=== PATIENT | male | born 1935 | race Hispanic/Latino ===

== ENCOUNTER 2017-04-28 14:46 | Observation (INO) | payer MEDICARE ==
[~2017-04-28] VITALS: Ht 165.1 cm; Wt 69.1 kg
[~2017-04-28 14:46] MED LIST: FINASTERIDE5 MG PO; IBUPROFEN PO; LEVAQUIN500 MG PO; METFORMIN HCL500 MG PO; PREDNISOLONE ACE5 ML OS; TAMSULOSIN HCL0.4 MG PO; TYLENOL WITH C1 EACH PO
[2017-04-28 15:38] LABS: BILIRUBIN,URINE NEGATIVE (NEGATIVE); KETONES,URINE NEGATIVE (NEGATIVE); LEUKOCYTE ESTERASE ,URINE NEGATIVE (NEGATIVE); NITRITE,URINE NEGATIVE (NEGATIVE); PROTEIN,URINE DIPSTICK NEGATIVE (NEGATIVE); URINE UROBILINOGEN 0.2 mg/dL (0.2 - 1)
[2017-04-28 15:39] LABS: BASOPHILS % 0.6 % (0.0-1.0); EOSINOPHILS # (AUTO) 0.3 (0.0-0.4); EOSINOPHILS % 5.2 % (0.0-6.0); HEMATOCRIT 33.1 % (38.2-49.6); HEMOGLOBIN 10.9 g/dL (14.0-18.0); LYMPHOCYTES # (AUTO) 1.7 (1.0-3.2); LYMPHOCYTES % 27.8 % (18.0-39.1); MEAN CORPUSCULAR HEMOGLOBIN 29.1 pg (28-32); MEAN CORPUSCULAR HGB CONC 32.9 g/dL (31-35); MEAN CORPUSCULAR VOLUME 88.5 fL (81-99); MONOCYTES # (AUTO) 0.5 (0.2-0.8); MONOCYTES % 7.3 % (4.4-11.3); NEUTROPHILS # (AUTO) 3.6 (2.1-6.9); NEUTROPHILS % 58.9 % (38.7-80.0); PLATELET COUNT 265 x10e3/uL (140-360); RED BLOOD COUNT 3.74 x10e6/uL (4.3-5.7)
[2017-04-28 15:45] LABS: INR 0.95; PARTIAL THROMBOPLASTIN TIME 20.4 seconds (23.8-35.5); PROTHROMBIN TIME 13.1 seconds (11.9-14.5)
[2017-04-28 15:50] LABS: CLARITY,URINE CLEAR (CLEAR); COLOR,URINE STRAW (YELLOW)
[2017-04-28 15:51] LABS: EPITHELIAL CELLS,URINE FEW /LPF; WBC,URINE (MAN) 0-5 /HPF (0-5)
[2017-04-28 15:54] LABS: ALANINE AMINOTRANSFERASE 14 IU/L (0-55); ALBUMIN 3.8 g/dL (3.5-5.0); ALBUMIN/GLOBULIN RATIO 0.9 (0.8-2.0); ALKALINE PHOSPHATASE 50 IU/L (40-150); ANION GAP 14.1 mmol/L (8-16); BLOOD UREA NITROGEN 21 mg/dL (7-26); BUN/CREATININE RATIO 20 (6-25); CALCIUM 9.4 mg/dL (8.4-10.2); CARBON DIOXIDE 24 mmol/L (22-29); CHLORIDE 104 mmol/L (98-107); CREATININE, SERUM 1.06 mg/dL (0.72-1.25); EST GLOMERULAR FILTRATION RATE > 60 ML/MIN (60-); GLUCOSE 105 mg/dL (74-118); POTASSIUM 4.1 mmol/L (3.5-5.1); SODIUM 138 mmol/L (136-145)
[2017-04-28] MEDS ORDERED: PANTOPRAZOLE 40 MG 10ML VIAL IV STA (16:34)
[2017-04-28] MEDS ORDERED: PANTOPRAZOLE INJ 40 MG in SODIUM CHLORIDE 0.9% 50ML 50 ML IV SCH (16:45)
[2017-04-28] MEDS ORDERED: PANTOPRAZOLE 40 MG 10ML VIAL ONE ×2 (16:58→23:22)
[2017-04-28] MEDS ORDERED: PANTOPRAZOLE INJ 80 MG in SODIUM CHLORIDE 0.9% 100 ML IV SCH (17:00)
[2017-04-28] MEDS ORDERED: SODIUM CHLORIDE FLUSH 10 ML SYR INJ PRN (17:00)
[2017-04-28] MEDS: PANTOPRAZOLE INJ 40 MG in SODIUM CHLORIDE 0.9% 50ML 50 ML IV SCH ×3 (17:07→22:00)
[2017-04-28 19:12] LABS: HEMATOCRIT 30.9 % (38.2-49.6); HEMOGLOBIN 10.2 g/dL (14.0-18.0)
--- NOTE | 2017-04-28 21:04 | Consultation ---
DATE OF CONSULTATION: April 28, 2017 HISTORY: This is an 81-year-old, who has recently orthopedic surgery, has been taking some ibuprofen, presented to the hospital because of dark, tarry stool for about a week or so ago. He denies any abdominal pain along with this problem. He has been taking ibuprofen every 12 hours for the pain. His workup revealed that he has some anemia, hemoglobin is 10.2. OTHER MEDICAL PROBLEMS: Borderline diabetes, history of BPH, again status post left hip surgery. MEDICATIONS AT HOME: Tamsulosin, ibuprofen, metformin, and finasteride. ALLERGIES: NONE. SOCIAL HISTORY: Denies any alcohol abuse. FAMILY HISTORY: Noncontributory. REVIEW OF SYSTEMS: At this point, he denies any chest pain. No shortness of breath. Denies any dysphagia or odynophagia. Denies any dysuria, hematuria or any kind of syncopal episode. EXAM GENERAL: Awake, alert, appears to be stable. No acute distress at this point. VITAL SIGNS: Afebrile currently with stable vital signs. HEAD, EYES, EARS, NOSE, THROAT: Normocephalic, atraumatic. Sclerae icteric. NECK: Supple. HEART: Regular. LUNGS: Clear. ABDOMEN: Soft. There is no distention at this point. It is nontender. EXTREMITIES: No clubbing. LAB VALUES: Significant for hemoglobin of 10.2. CMP is normal. PT/INR is normal. IMPRESSIONS 1. Gastrointestinal bleed with black tarry stool. Patient has been taking ibuprofen. No evidence of peptic ulcer disease at this point. 2. History of diabetes. RECOMMENDATION: Continue the proton pump inhibitor at this point. We will proceed with EGD for further evaluation tomorrow. Follow labs and clinically. Job#: [id number] CQ cc:APRIL BREWER MD
[2017-04-28 21:30] VITALS: BP 143/80
[2017-04-28] MEDS ORDERED: HYDROCODONE/APAP 5MG-325MG TAB PO PRN (22:15)
[2017-04-28] MEDS ORDERED: SODIUM CHLORIDE 0.9% 50ML 50 ML ONE (23:26)
[2017-04-29] VITALS (7 sets, daily range): BP systolic 115–144; BP diastolic 62–80
[2017-04-29 02:36] LABS: HEMATOCRIT 31.2 % (38.2-49.6); HEMOGLOBIN 10.4 g/dL (14.0-18.0)
[2017-04-29] MEDS ORDERED: SODIUM CHLORIDE 0.9% 50ML 50 ML ONE (06:13)
[2017-04-29] MEDS: PANTOPRAZOLE INJ 40 MG in SODIUM CHLORIDE 0.9% 50ML 50 ML IV SCH (06:46)
[2017-04-29 08:21] LABS: HEMATOCRIT 30.4 % (38.2-49.6); HEMOGLOBIN 9.9 g/dL (14.0-18.0)
[2017-04-29] MEDS ORDERED: PANTOPRAZOLE 40 MG 10ML VIAL ONE (08:33)
[2017-04-29 08:46] LABS: ANION GAP 9.3 mmol/L (8-16); BLOOD UREA NITROGEN 17 mg/dL (7-26); BUN/CREATININE RATIO 18 (6-25); CALCIUM 8.7 mg/dL (8.4-10.2); CARBON DIOXIDE 30 mmol/L (22-29); CHLORIDE 108 mmol/L (98-107); CREATININE, SERUM 0.96 mg/dL (0.72-1.25); EST GLOMERULAR FILTRATION RATE > 60 ML/MIN (60-); GLUCOSE 98 mg/dL (74-118); POTASSIUM 4.3 mmol/L (3.5-5.1); SODIUM 143 mmol/L (136-145)
[2017-04-29] MEDS ORDERED: PANTOPRAZOLE INJ 40 MG in SODIUM CHLORIDE 0.9% 50ML 50 ML IV SCH (09:45)
[2017-04-29] MEDS: PANTOPRAZOL 40MG/SOD CHL 0.9% 50 ML IV SCH ×3 (10:04→20:56)
[2017-04-29 15:01] LABS: BASOPHILS % 0.7 % (0.0-1.0); EOSINOPHILS # (AUTO) 0.2 (0.0-0.4); EOSINOPHILS % 4.2 % (0.0-6.0); HEMATOCRIT 30.1 % (38.2-49.6); LYMPHOCYTES # (AUTO) 1.5 (1.0-3.2); LYMPHOCYTES % 27.9 % (18.0-39.1); MEAN CORPUSCULAR HEMOGLOBIN 29.2 pg (28-32); MEAN CORPUSCULAR HGB CONC 33.2 g/dL (31-35); MEAN CORPUSCULAR VOLUME 87.8 fL (81-99); MONOCYTES # (AUTO) 0.5 (0.2-0.8); MONOCYTES % 8.6 % (4.4-11.3); NEUTROPHILS # (AUTO) 3.2 (2.1-6.9); NEUTROPHILS % 58.2 % (38.7-80.0); PLATELET COUNT 231 x10e3/uL (140-360); RED BLOOD COUNT 3.43 x10e6/uL (4.3-5.7); RED CELL DISTRIBUTION WIDTH 13.9 % (11.7-14.4)
[2017-04-29] MEDS ORDERED: PROPOFOL IV EMULSION 10 MG/ML 50 ML VIAL ONE (17:34)
[2017-04-29] MEDS: METFORMIN HCL 500 MG TAB PO SCH (17:59)
[2017-04-29] MEDS ORDERED: FENTANYL CITRATE/PF 100MCG/2 ML INJ ONE (18:21)
[2017-04-29 20:56] LABS: BASOPHILS # (AUTO) 0.1 (0.0-0.1); BASOPHILS % 0.9 % (0.0-1.0); EOSINOPHILS # (AUTO) 0.3 (0.0-0.4); EOSINOPHILS % 4.2 % (0.0-6.0); HEMATOCRIT 35.3 % (38.2-49.6); HEMOGLOBIN 11.5 g/dL (14.0-18.0); LYMPHOCYTES # (AUTO) 2.2 (1.0-3.2); LYMPHOCYTES % 28.7 % (18.0-39.1); MEAN CORPUSCULAR HEMOGLOBIN 28.9 pg (28-32); MEAN CORPUSCULAR HGB CONC 32.6 g/dL (31-35); MEAN CORPUSCULAR VOLUME 88.7 fL (81-99); MONOCYTES # (AUTO) 0.8 (0.2-0.8); MONOCYTES % 10.2 % (4.4-11.3); NEUTROPHILS # (AUTO) 4.2 (2.1-6.9); NEUTROPHILS % 55.7 % (38.7-80.0); PLATELET COUNT 276 x10e3/uL (140-360); RED BLOOD COUNT 3.98 x10e6/uL (4.3-5.7); RED CELL DISTRIBUTION WIDTH 13.9 % (11.7-14.4)
[2017-04-29] MEDS: TAMSULOSIN HCL 0.4 MG CAP PO SCH (20:56)
[2017-04-30] VITALS: BP 147/70
[2017-04-30 01:22] LABS: BASOPHILS % 0.5 % (0.0-1.0); EOSINOPHILS # (AUTO) 0.4 (0.0-0.4); EOSINOPHILS % 4.1 % (0.0-6.0); HEMOGLOBIN 11.5 g/dL (14.0-18.0); LYMPHOCYTES # (AUTO) 2.1 (1.0-3.2); LYMPHOCYTES % 24.8 % (18.0-39.1); MEAN CORPUSCULAR HGB CONC 32.9 g/dL (31-35); MEAN CORPUSCULAR VOLUME 88.4 fL (81-99); MONOCYTES # (AUTO) 0.6 (0.2-0.8); MONOCYTES % 6.5 % (4.4-11.3); NEUTROPHILS # (AUTO) 5.5 (2.1-6.9); NEUTROPHILS % 63.8 % (38.7-80.0); PLATELET COUNT 241 x10e3/uL (140-360); RED BLOOD COUNT 3.96 x10e6/uL (4.3-5.7); RED CELL DISTRIBUTION WIDTH 13.8 % (11.7-14.4)
[2017-04-30] MEDS: PANTOPRAZOL 40MG/SOD CHL 0.9% 50 ML IV SCH ×4 (01:29→16:01)
[2017-04-30 04:00] VITALS: BP 116/73
[2017-04-30 07:03] VITALS: BP 104/59
[2017-04-30 07:08] LABS: BASOPHILS # (AUTO) 0.1 (0.0-0.1); BASOPHILS % 0.9 % (0.0-1.0); EOSINOPHILS # (AUTO) 0.4 (0.0-0.4); EOSINOPHILS % 5.3 % (0.0-6.0); HEMATOCRIT 31.5 % (38.2-49.6); HEMOGLOBIN 10.3 g/dL (14.0-18.0); LYMPHOCYTES # (AUTO) 1.8 (1.0-3.2); LYMPHOCYTES % 27.5 % (18.0-39.1); MEAN CORPUSCULAR HEMOGLOBIN 28.8 pg (28-32); MEAN CORPUSCULAR HGB CONC 32.7 g/dL (31-35); MONOCYTES # (AUTO) 0.5 (0.2-0.8); NEUTROPHILS # (AUTO) 3.9 (2.1-6.9); NEUTROPHILS % 58.1 % (38.7-80.0); PLATELET COUNT 252 x10e3/uL (140-360); RED BLOOD COUNT 3.58 x10e6/uL (4.3-5.7); RED CELL DISTRIBUTION WIDTH 13.7 % (11.7-14.4)
[2017-04-30] MEDS: METFORMIN HCL 500 MG TAB PO SCH ×2 (08:00→17:48)
[2017-04-30] MEDS: FINASTERIDE 5 MG TAB PO SCH (09:05)
[2017-04-30 11:51] VITALS: BP 98/53
[2017-04-30 13:04] LABS: BASOPHILS % 0.6 % (0.0-1.0); EOSINOPHILS # (AUTO) 0.3 (0.0-0.4); EOSINOPHILS % 5.3 % (0.0-6.0); HEMATOCRIT 31.5 % (38.2-49.6); HEMOGLOBIN 10.3 g/dL (14.0-18.0); LYMPHOCYTES # (AUTO) 1.9 (1.0-3.2); LYMPHOCYTES % 29.4 % (18.0-39.1); MEAN CORPUSCULAR HGB CONC 32.7 g/dL (31-35); MEAN CORPUSCULAR VOLUME 88.7 fL (81-99); MONOCYTES # (AUTO) 0.5 (0.2-0.8); MONOCYTES % 7.9 % (4.4-11.3); NEUTROPHILS # (AUTO) 3.6 (2.1-6.9); NEUTROPHILS % 56.6 % (38.7-80.0); PLATELET COUNT 243 x10e3/uL (140-360); RED BLOOD COUNT 3.55 x10e6/uL (4.3-5.7); RED CELL DISTRIBUTION WIDTH 13.8 % (11.7-14.4)
[2017-04-30 16:12] VITALS: BP 121/61
[2017-04-30 19:12] LABS: BASOPHILS # (AUTO) 0.1 (0.0-0.1); BASOPHILS % 0.7 % (0.0-1.0); EOSINOPHILS # (AUTO) 0.4 (0.0-0.4); EOSINOPHILS % 6.3 % (0.0-6.0); HEMATOCRIT 32.6 % (38.2-49.6); HEMOGLOBIN 10.6 g/dL (14.0-18.0); LYMPHOCYTES # (AUTO) 1.9 (1.0-3.2); LYMPHOCYTES % 27.6 % (18.0-39.1); MEAN CORPUSCULAR HEMOGLOBIN 28.7 pg (28-32); MEAN CORPUSCULAR HGB CONC 32.5 g/dL (31-35); MEAN CORPUSCULAR VOLUME 88.3 fL (81-99); MONOCYTES # (AUTO) 0.7 (0.2-0.8); NEUTROPHILS # (AUTO) 3.8 (2.1-6.9); NEUTROPHILS % 55.3 % (38.7-80.0); PLATELET COUNT 244 x10e3/uL (140-360); RED BLOOD COUNT 3.69 x10e6/uL (4.3-5.7); RED CELL DISTRIBUTION WIDTH 13.7 % (11.7-14.4)
[2017-04-30 20:04] VITALS: BP 137/70
[2017-04-30] MEDS: TAMSULOSIN HCL 0.4 MG CAP PO SCH (22:03)
--- NOTE | 2017-04-30 23:06 | Progress Note ---
DATE: INTERNAL MEDICINE PROGRESS NOTE SUBJECTIVE: He has had an episode of dark stools. He was found to have gastritis on EGD. Hemoglobin and hematocrit are stable. He is on Protonix. PHYSICAL EXAM HEART: Regular rhythm. No murmur or extra sounds. LUNGS: Clear bilaterally. ABDOMEN: Soft. EXTREMITIES: No evidence of cyanosis, edema or trauma. VITAL SIGNS: Blood pressure 120/72. Temperature 96 degrees. Heart rate is a 65 per minute. Respiratory rate 16 per minute. Oxygen saturation 98%. LABS: CBC: White blood count is 6.16, hemoglobin 9.9, hematocrit 30.4, platelet count 265,000. BMP: Sodium 143, potassium 4.3, chloride 108, CO2 30, BUN 17, creatinine 0.96, glucose 98. PT 13.1, PTT 20.4, INR 0.95. AST 13, ALT 14, total bilirubin 0.5, alkaline phosphatase 50. FINAL IMPRESSION 1. Upper gastrointestinal bleed secondary to gastritis. 2. Acute anemia. PLAN OF TREATMENT: Continue monitoring hemoglobin and hematocrit which so far is stable. Continue p.o. Protonix. As long as there is no more drop in hemoglobin and hematocrit, the patient might be able to go home tomorrow. Job#: [id number] VALENTE
[2017-05-01 01:24] VITALS: BP 110/67
[2017-05-01 05:12] VITALS: BP 98/57
[2017-05-01 07:21] LABS: BASOPHILS # (AUTO) 0.1 (0.0-0.1); BASOPHILS % 0.7 % (0.0-1.0); EOSINOPHILS # (AUTO) 0.5 (0.0-0.4); EOSINOPHILS % 6.4 % (0.0-6.0); HEMATOCRIT 32.8 % (38.2-49.6); HEMOGLOBIN 10.5 g/dL (14.0-18.0); LYMPHOCYTES # (AUTO) 2.3 (1.0-3.2); LYMPHOCYTES % 32.5 % (18.0-39.1); MEAN CORPUSCULAR HEMOGLOBIN 28.5 pg (28-32); MEAN CORPUSCULAR VOLUME 88.9 fL (81-99); MONOCYTES # (AUTO) 0.7 (0.2-0.8); MONOCYTES % 9.6 % (4.4-11.3); NEUTROPHILS # (AUTO) 3.6 (2.1-6.9); NEUTROPHILS % 50.5 % (38.7-80.0); PLATELET COUNT 258 x10e3/uL (140-360); RED BLOOD COUNT 3.69 x10e6/uL (4.3-5.7); RED CELL DISTRIBUTION WIDTH 13.8 % (11.7-14.4)
[2017-05-01] MEDS ORDERED: PANTOPRAZOLE SOD 40 MG TABEC PO SCH (07:30)
[2017-05-01 08:00] VITALS: BP 112/67
[2017-05-01] MEDS: METFORMIN HCL 500 MG TAB PO SCH ×2 (08:00→17:39)
[2017-05-01] MEDS: FINASTERIDE 5 MG TAB PO SCH (09:30)
[2017-05-01 11:40] VITALS: BP 139/74
--- NOTE | 2017-05-01 15:43 | Discharge Summary ---
HISTORY OF PRESENT ILLNESS: An 81-year-old male with past medical history positive for diabetes and hypertension who came here with black stools. He had an EGD done by Dr. Rocha, house father, which showed evidence of gastritis, hiatal hernia. No evidence of any active bleed at that time. PHYSICAL EXAMINATION HEART: Regular rhythm. No murmur. No extra sounds. LUNGS: Clear bilaterally. ABDOMEN: Soft. EXTREMITIES: Show no evidence of cyanosis, edema or trauma. FINAL IMPRESSION 1. Upper GI bleed secondary to gastritis in a patient was taking ibuprofen. 2. Hypertension. 3. Diabetes mellitus type 2. PLAN: Plan of treatment is to continue Protonix 40 mg daily. Continue rest of the home medications. Diabetic diet. Patient is told to stay away from ibuprofen, non-steroidal anti-inflammatory drugs like Aleve, Motrin, aspirin, etc. and to take Tylenol for pain or fever. The patient is going to be followed in a couple of weeks. Dr. Rocha and also discharged the patient home. APRIL BREWER MD Job#: [id number]
[2017-05-01 16:40] VITALS: BP 120/68
[2017-05-01] MEDS ORDERED: PANTOPRAZOLE SO40 MG PO (16:44)
== END 2017-05-01 18:35 | disposition home or self-care (01) ==
LOC: ER 14:46 → ERHOLD 17:08 → INTOOBSV 17:08 → MED/SURG3 21:14
PROVIDERS: ADMIT Internal Medicine; ATTEND Internal Medicine
DX: K29.61 Other gastritis with bleeding (principal); D64.9 Anemia, unspecified; K44.9 Diaphragmatic hernia without obstruction or gangrene; K21.0 Gastro-esophageal reflux disease with esophagitis; E11.9 Type 2 diabetes mellitus without complications
CPT/HCPCS: 36415 ×4; 43239; 80048; 80053; 81001; 82270; 82948 ×2; 85014 ×4; 85018 ×4; 85025 ×4; 85610; 85730; 86850; 86870; 86880; 86900; 86905; 87086; 88305; 88312; 99001; 99284; G0378 ×4

== ENCOUNTER → 2018-06-05 | Outpatient (CLI) | payer MEDICARE ==
[~2018-06-05] MED LIST changes: +PANTOPRAZOLE SO40 MG PO
--- NOTE | 2018-06-05 08:54 | Diagnostic Imaging Report ---
EXAM: Renal Ultrasound and pelvic ultrasound (non OB) INDICATION: CKD stage 3 COMPARISON: None TECHNIQUE: Transverse and longitudinal images of the kidneys and bladder were obtained. FINDINGS: Right Kidney: Length: 10.4 cm Appearance: Normal echogenicity. Collecting system: No hydronephrosis Stones: None Cyst/Mass: None Left Kidney: Length: 11.7 cm Appearance: Normal echogenicity. Collecting system: No hydronephrosis Stones: None Cyst/Mass: None Bladder: Unremarkable appearance. Bilateral ureteral jets are noted. Prostate is not seen and pelvis is obscured by overlying bowel gas and body habitus. IMPRESSION: Unremarkable renal and bladder ultrasound. No evidence of hydronephrosis. Signed by: Dr. Von Woody MD on 06/05/2018 8:51 AM
== END ==
LOC: US 07:25
PROVIDERS: ATTEND Internal Medicine Nephrology
DX: N18.3 Chronic kidney disease, stage 3 (moderate) (principal); I10 Essential (primary) hypertension; E11.9 Type 2 diabetes mellitus without complications
CPT/HCPCS: 76770; 76857

== ENCOUNTER 2018-09-15 08:39 | Emergency (ER) | payer MEDICARE ==
[~2018-09-15] VITALS: Ht 165.1 cm; Wt 68.9 kg
--- OUTSIDE RECORDS SUMMARY | 2018-09-15 08:44 | XMS REPORT | Continuity of Care Document ---
Author Author [facility] Interface Address Unknown Phone Unavailable Problems Problem Status Onset Date Classification Date Reported Comments Source LUMBAR Active 01/23/2017 [facility] Discharge Diagnosis: Fall at home 01/15/2017 01/18/2017 [facility] FALL Active 01/14/2017 [facility] LBP Active 09/11/2016 [facility] FALL - HIP PAIN OR JNJURY Active 09/10/2016 [facility] CLOSED FRACTURE OF LEFT HIP Active 09/10/2016 [facility] M54.5 - LOW BACK PAIN Active 12/13/2015 [facility] DM (<span ID="[id number]">Confirmed</span>) Resolved Problem 05/05/2017 [facility] Arthritis Resolved Problem 05/05/2017 [facility] BPH (<span ID="[id number]">Confirmed</span>) Resolved Problem 05/05/2017 [facility] FRACTURE OF UNSP PART OF NECK OF LEFT FE Active [facility] Medications Medication Details Route Status Patient Instructions Ordering Provider Order Date Source Saline Flush 0.9% 10 mL, Route: IVP, Drug Form: INJ, Dosing Weight 70, kg, PRN, PRN Line Flush, Start date: 01/14/17 22:36:00 CDT, Duration: 30 day, Stop date: 02/13/17 22:35:00 CDTNotes: (Same as: BD Posiflush) No Longer Active 01/15/2017 [facility] Acetaminophen 300 MG / Codeine Phosphate 30 MG Oral Tablet [Tylenol with Codeine #3] 1 tab, PO, Q4H, PRN Pain, # 30 tab, 0 Refill(s) Active 09/14/2016 [facility] melatonin 3 mg oral tablet 3 mg=1 tab, PO, Bedtime, PRN Sleep, .., 0 Refill(s) Active 09/14/2016 [facility] Enoxaparin 30 mg=0.3 mL, SUB-Q, Daily, 0 Refill(s) Active 09/14/2016 [facility] magnesium citrate 58.2 MG/ML Oral Solution 300 ml, Route: PO, Drug Form: LIQ, Dosing Weight 65.909, kg, ONCE, Start date: 09/12/16 17:56:00 CDT, Stop date: 09/12/16 17:56:00 CDTNotes: (Same as: Citrate of Magnesia) Concentration: 1.745 gm / 30 mL No Longer Active 09/12/2016 [facility] Insulin, Aspart, Human 2 unit, 0.02 mL, Route: SUB-Q, Drug form: SOLN, Bedtime, Dosing Weight 65.909, kg, PRN Blood Glucose Results, Start date: 09/12/16 12:02:00 CDT, Duration: 30 day, Stop date: 10/12/16 12:01:00 CDTNotes: Roll in palms of hands gently; Do not shake vigorously. (Same as: NovoLOG) "single patient use only" WASTE: F/P - Black; E - [employer] Trash Bin Stable for 28 days at room temperature. Expires in days from Date No Longer Active 09/12/2016 [facility] Glucagon 1 mg, Route: IM, Drug form: PDR/INJ, PRN, Dosing Weight 65.909, kg, PRN Blood Glucose Results, Start date: 09/12/16 12:02:00 CDT, Duration: 30 day, Stop date: 10/12/16 12:01:00 CDT No Longer Active 09/12/2016 [facility] Dextrose 50% Syringe 12.5 gm, 25 mL, Route: IVP, Drug Form: INJ, Dosing Weight 65.909, kg, PRN, PRN Blood Glucose Results, Start date: 09/12/16 12:02:00 CDT, Duration: 30 day, Stop date: 10/12/16 12:01:00 CDT No Longer Active 09/12/2016 [facility] tamsulosin 0.4 mg, 1 cap, Route: PO, Drug form: CAP, Daily, Dosing Weight 65.909, kg, Priority: STAT, Start date: 09/12/16 12:02:00 CDT, Duration: 30 day, Stop date: 10/12/16 9:00:00 CDTNotes: (Same As: Flomax) "Do Not Crush" No Longer Active 09/12/2016 [facility] Finasteride 5 mg, 1 tab, Route: PO, Drug form: TAB, Daily, Dosing Weight 65.909, kg, Priority: STAT, Start date: 09/12/16 12:02:00 CDT, Stop date: 10/12/16 9:00:00 CDTNotes: (Same as: Proscar) "Do Not Crush" Women of childbearing age should not touch or handle broken tablets No Longer Active 09/12/2016 [facility] Enoxaparin 30 mg, 0.3 mL, Route: SUB-Q, Drug form: INJ, [id number], Dosing Weight 65.909, kg, Start date: 09/12/16 6:00:00 CDT, Duration: 30 day, Stop date: 10/11/16 18:00:00 CDTNotes: (Same as: Lovenox) No Longer Active 09/12/2016 [facility] Cefazolin 1 gm, Route: IVPB, [id number], Dosing Weight 65.909, kg, Start date: 09/11/16 23:00:00 CDT, Duration: 1 doses or times, Stop date: 09/11/16 23:00:00 CDTNotes: (Same As: Ancef, Kefzol) MEDICATION WASTE Product Size: 1000 mg Product Wasted: ___ mg Inactive 09/12/2016 [facility] Docusate Sodium 100 MG Oral Capsule 200 mg, 2 cap, Route: PO, Drug form: CAP, BID, Dosing Weight 65.909, kg, Start date: 09/11/16 17:00:00 CDT, Stop date: 10/11/16 9:00:00 CDTNotes: (Same as: Colace) (Do Not Crush) No Longer Active 09/11/2016 [facility] glycopyrrolate (ANES) Route: IV, Drug form: INJ, ONCE, Stop date: 09/11/16 16:40:00 CDT Inactive 09/11/2016 [facility] phenylephrine (ANES) Route: IV, Drug form: INJ, ONCE, Stop date: 09/11/16 16:33:00 CDT Inactive 09/11/2016 [facility] ePHEDrine (ANES) Route: IV, Drug form: INJ, ONCE, Stop date: 09/11/16 16:31:00 CDT Inactive 09/11/2016 [facility] ondansetron (ANES) Route: IV, Drug form: INJ, ONCE, Stop date: 09/11/16 16:31:00 CDT Inactive 09/11/2016 [facility] dexamethasone (ANES) Route: IV, Drug form: INJ, ONCE, Stop date: 09/11/16 16:31:00 CDT Inactive 09/11/2016 [facility] Melatonin 3 mg, 1 tab, Route: PO, Drug form: TAB, Bedtime, Dosing Weight 65.909, kg, PRN Sleep, Start date: 09/11/16 16:24:00 CDT, Duration: 30 day, Stop date: 10/11/16 16:23:00 CDT, ..Notes: (Same as: [place] in) No Longer Active 09/11/2016 [facility] Tramadol 50 mg, 1 tab, Route: PO, Drug form: TAB, Q4H, Dosing Weight 65.909, kg, PRN Pain Score 4-6, Start date: 09/11/16 16:24:00 CDT, Duration: 30 day, Stop date: 10/11/16 16:23:00 CDT, ..Notes: Not to exceed 400mg/day. (Same As: Maribel) No Longer Active 09/11/2016 [facility] Ondansetron 4 mg, 2 mL, Route: IVP, Drug form: INJ, Q8H, Dosing Weight 65.909, kg, PRN Nausea & Vomiting, Start date: 09/11/16 16:24:00 CDT, Duration: 30 day, Stop date: 10/11/16 16:23:00 CDT, ..Notes: (Same as: Olamide) MEDICATION WASTE Product Size: 4 mg Product Wasted: ___ mg No Longer Active 09/11/2016 [facility] Naloxone 0.04 mg, Route: IVP, Q2MIN, Dosing Weight 65.909, kg, PRN Narcotic Reversal, Start date: 09/11/16 16:23:00 CDT, Duration: 30 day, Stop date: 10/11/16 16:22:00 CDT Inactive 09/11/2016 [facility] Dulcolax Laxative 5 mg, 1 tab, Route: PO, Drug form: ECTAB, Q24H, Dosing Weight 65.909, kg, PRN Constipation, Start date: 09/11/16 16:23:00 CDT, Duration: 30 day, Stop date: 10/11/16 16:22:00 CDTNotes: (Same As: Dulcolax , Correctol) (Do Not Crush) "Do Not Crush" No Longer Active 09/11/2016 [facility] Ondansetron 4 mg, Route: IVP, Q6H, Dosing Weight 65.909, kg, PRN Nausea & Vomiting, Start date: 09/11/16 16:23:00 CDT, Duration: 30 day, Stop date: 10/11/16 16:22:00 CDT Inactive 09/11/2016 [facility] Acetaminophen 325 MG / Hydrocodone Bitartrate 10 MG Oral Tablet 1 tab, Route: PO, Drug Form: TAB, Dosing Weight 65.909, kg, Q4H, PRN Pain Score 7-10, Start date: 09/11/16 16:23:00 CDT, Duration: 30 day, Stop date: 10/11/16 16:22:00 CDTNotes: Do not exceed 4gm/day of acetaminophen. (Same as: [place] 325/10) No Longer Active 09/11/2016 [facility] Lactated Ringers 1,000 mL 1,000 mL, Rate: 100 ml/hr, Infuse over: 10 hr, Route: IV, Dosing Weight 65.909 kg, Total Volume: 1,000, Start date: 09/11/16 16:23:00 CDT, Duration: 30 day, Stop date: 10/11/16 16:22:00 CDT No Longer Active 09/11/2016 [facility] ceFAZolin (ANES) Route: IV, Drug form: INJ, ONCE, Stop date: 09/11/16 15:56:00 CDT Inactive 09/11/2016 [facility] propofol (ANES) Route: IV, Drug form: INJ, ONCE, Stop date: 09/11/16 15:51:00 CDT Inactive 09/11/2016 [facility] lidocaine (ANES) Route: IV, Drug form: INJ, ONCE, Stop date: 09/11/16 15:51:00 CDT Inactive 09/11/2016 [facility] fentaNYL (ANES) Route: IV, Drug form: INJ, ONCE, Stop date: 09/11/16 15:51:00 CDT Inactive 09/11/2016 [facility] LR 1000 mL INJ (ANES) Route: IV, Total Volume: 1,000, Start date: 09/11/16 15:10:00 CDT, Stop date: 09/11/16 16:10:00 CDT Inactive 09/11/2016 [facility] Lactated Ringers 1,000 mL 1,000 mL, Rate: 40 ml/hr, Infuse over: 25 hr, Route: IV, Dosing Weight 65.909 kg, Total Volume: 1,000, Start date: 09/11/16 14:47:00 CDT, Duration: 1 day, Stop date: 09/12/16 14:46:00 CDT Inactive 09/11/2016 [facility] Rocephin 1 gm, Route: IVPB, [id number], Dosing Weight 65.909, kg, Start date: 09/11/16 4:00:00 CDT, Duration: 30 day, Stop date: 10/10/16 4:00:00 CDTNotes: (Same As: Rocephin). Use with 100 mL NS and infuse over 30 min MEDICATION WASTE Product Size: 1000 mg Product Wasted: ___ mg No Longer Active 09/11/2016 [facility] finasteride 5 mg oral tablet 5 mg=1 tab, PO, Daily, 0 Refill(s) Active 09/11/2016 [facility] tamsulosin 0.4 mg oral capsule 0.4 mg=1 cap, PO, Daily, 0 Refill(s) Active 09/11/2016 [facility] Metformin 500 mg, PO, BID, 0 Refill(s) Active 09/11/2016 [facility] ibuprofen 800 mg oral tablet 800 mg=1 tab, PO, TID, 0 Refill(s) No Longer Active 09/11/2016 [facility] Enoxaparin 30 mg, 0.3 mL, Route: SUB-Q, Drug form: INJ, [id number], Dosing Weight 65.909, kg, Start date: 09/11/16 2:00:00 CDT, Duration: 30 day, Stop date: 10/10/16 14:00:00 CDTNotes: (Same as: Lovenox) Inactive 09/11/2016 [facility] Morphine 2 mg, 1 mL, Route: IVP, Drug form: INJ, Q4H, Dosing Weight 65.909, kg, PRN Pain Score 7-10, Start date: 09/11/16 1:29:00 CDT, Duration: 30 day, Stop date: 10/11/16 1:28:00 CDTNotes: (Same as:MORPhine Sulfate) No Longer Active 09/11/2016 [facility] Ondansetron 4 mg, 2 mL, Route: IVP, Drug form: INJ, Q6H, Dosing Weight 65.909, kg, PRN Nausea & Vomiting, Start date: 09/11/16 1:29:00 CDT, Duration: 30 day, Stop date: 10/11/16 1:28:00 CDTNotes: (Same as: Zofran) MEDICATION WASTE Product Size: 4 mg Product Wasted: ___ mg Inactive 09/11/2016 [facility] Sodium Chloride 0.0769 MEQ/ML Injectable Solution 1,000 mL, Rate: 100 ml/hr, Infuse over: 10 hr, Route: IV, Dosing Weight 65.909 kg, Total Volume: 1,000, Start date: 09/11/16 1:29:00 CDT, Duration: 30 day, Stop date: 10/11/16 1:28:00 CDT Inactive 09/11/2016 [facility] Saline Flush 0.9% 10 ml, Route: IVP, Drug Form: INJ, Dosing Weight 65.909, kg, PRN, PRN Line Flush, Start date: 09/11/16 1:29:00 CDT, Duration: 30 day, Stop date: 10/11/16 1:28:00 CDTNotes: (Same as: BD Posiflush) No Longer Active 09/11/2016 [facility] sodium chloride 0.9% INJ 250 mL 250 mL, Rate: Sr[employer] for use with blood product administration., Dosing Weight 65.909, kg, Route: IV, Total Volume: 250, Priority: Routine, Start Date: 09/10/16 23:43:00 CDT, Duration: 1 day, Stop date: 09/11/16 23:42:00 CDT, Replace Every: 24 hr No Longer Active 09/11/2016 [facility] Ancef 2 gm, 100 mL, Route: IVPB, Drug form: INJ, ONCE, Dosing Weight 65.909, kg, Priority: STAT, Start date: 09/10/16 23:43:00 CDT, Stop date: 09/10/16 23:43:00 CDTNotes: Same as: Ancef No Longer Active 09/11/2016 [facility] Saline Flush 0.9% 10 mL, Route: IVP, Drug Form: INJ, Dosing Weight 65.909, kg, PRN, PRN Line Flush, Start date: 09/10/16 23:08:00 CDT, Duration: 30 day, Stop date: 10/10/16 23:07:00 CDTNotes: (Same as: BD Posiflush) No Longer Active 09/11/2016 [facility] Ondansetron 4 mg, 2 mL, Route: IVP, Drug form: INJ, ONCE, Dosing Weight 65.909, kg, Priority: STAT, Start date: 09/10/16 22:14:00 CDT, Stop date: 09/10/16 22:14:00 CDTNotes: (Same as: Zofran) MEDICATION WASTE Product Size: 4 mg Product Wasted: ___ mg Inactive 09/11/2016 [facility] Morphine 4 mg, 1 mL, Route: IVP, Drug form: SOLN, ONCE, Dosing Weight 65.909, kg, Priority: STAT, Start date: 09/10/16 22:14:00 CDT, Stop date: 09/10/16 22:14:00 CDTNotes: (Same as:MORPhine Sulfate) Inactive 09/11/2016 [facility] Allergies, Adverse Reactions, Alerts Substance Category Reaction Severity Reaction type Status Date Reported Comments Source Immunizations Immunization Date Given Site Status Last Updated Comments Source Results Order Name Results Value Reference Range Date Interpretation Comments Source Chest 1view DX Chest 1view DX Chest 1view DX 01/14/2017 10:36 PM CDT Ordering Physician: Nichole Ross CLINICAL HISTORY: - weakness; TECHNIQUE: AP view of the chest were obtained. COMPARISON: 4 days ago FINDINGS: Lungs are clear. No pleural effusion of pneumothorax is present. Cardiomediastinal silhouette demonstrates normal heart size, but with mild aortic arch calcified plaque. Bones are normal. IMPRESSION: No acute abnormality of the chest. SL: ODALYS 01/14/2017 - - Read by: Agata Pace MD Dictated Date/time: 01/14/17 23:23 Electronically Signed by: Agata Pace MD 01/14/17 23:24 FINAL REPORT [facility] Hip bilat w pelvis and both lat hips DX Hip bilat w pelvis and both lat hips DX Hip bilat w pelvis and both lat hips DX 01/14/2017 10:34 PM CDT Ordering Physician: Nichole Ross CLINICAL INDICATION: - right hip pain; COMPARISON: 09/10/2016 and 09/11/2016 TECHNIQUE: AP view of the pelvis and internal and external rotated views of the bilateral hips were obtained. Total 5 views FINDINGS: No acute fracture, subluxation, or dislocation is present in the hips or pelvis. No unexpected radiopaque foreign body is present. Chronic left femoral neck fracture is stable with intact ORIF screws. IMPRESSION: No acute abnormality of the bilateral hips or pelvis. SL: ODALYS 01/14/2017 - - Read by: Agata Pace MD Dictated Date/time: 01/14/17 23:24 Electronically Signed by: Agata Pace MD 01/14/17 23:26 FINAL REPORT [facility] Spine cervical wo contrast CT Spine cervical wo contrast CT CT BRAIN WITHOUT CONTRAST, CT CERVICAL SPINE WITHOUT CONTRAST INDICATION: Posttraumatic head and cervical spine pain, ct dlp 901.26 mGy-cm - weakness, fell today, hx of recent hip surgery COMPARISON: None DISCUSSION: BRAIN: There are generalized involutional changes of the brain and microangiopathic changes of the white matter. There is no evidence of acute vascular insults, space occupying lesions, hemorrhage, hydrocephalus, midline shift, or extra- axial fluid collections. The calvarium is intact. CERVICAL SPINE: There are no acute fractures or subluxations. Vertebral body alignment is within normal limits. There is moderate cervical spondylosis, resulting in varying degrees of foraminal stenosis at multiple levels. Grossly, there is no appreciably significant spinal canal stenosis. The soft tissues are grossly unremarkable. Ligament, spinal cord, and/or vascular abnormalities cannot be excluded on the basis of this examination. IMPRESSION: 1. Chronic age-related changes of the brain. No acute intracranial abnormalities are visualized. 2. No acute cervical spine abnormalities are visualized. Cervical spondylosis is noted. SL:16 01/14/2017 - - Read by: Gino Banda MD Dictated Date/time: 01/14/17 23:06 Electronically Signed by: Gino Banda MD 01/14/17 23:12 FINAL REPORT [facility] Brain wo contrast CT Brain wo contrast CT CT BRAIN WITHOUT CONTRAST, CT CERVICAL SPINE WITHOUT CONTRAST INDICATION: Posttraumatic head and cervical spine pain, ct dlp 901.26 mGy-cm - weakness, fell today, hx of recent hip surgery COMPARISON: None DISCUSSION: BRAIN: There are generalized involutional changes of the brain and microangiopathic changes of the white matter. There is no evidence of acute vascular insults, space occupying lesions, hemorrhage, hydrocephalus, midline shift, or extra- axial fluid collections. The calvarium is intact. CERVICAL SPINE: There are no acute fractures or subluxations. Vertebral body alignment is within normal limits. There is moderate cervical spondylosis, resulting in varying degrees of foraminal stenosis at multiple levels. Grossly, there is no appreciably significant spinal canal stenosis. The soft tissues are grossly unremarkable. Ligament, spinal cord, and/or vascular abnormalities cannot be excluded on the basis of this examination. IMPRESSION: 1. Chronic age-related changes of the brain. No acute intracranial abnormalities are visualized. 2. No acute cervical spine abnormalities are visualized. Cervical spondylosis is noted. SL:01/14/2017 - - Read by: Gino Banda MD Dictated Date/time: 01/14/17 23:06 Electronically Signed by: Gino Banda MD 01/14/17 23:12 FINAL REPORT [facility] Hct 34.1 % 42.0 - 54.0 09/13/2016 [facility] MCV 82.1 fL 80.0 - 94.0 09/13/2016 [facility] MCH 26.9 pg 27.0 - 31.0 09/13/2016 [facility] MCHC 32.7 g/dL 32.0 - 36.0 09/13/2016 [facility] HEMATOLOGY RDW 16.3 % 11.5 - 14.5 09/13/2016 [facility] HEMATOLOGY Platelet 196 K/CMM 133 - 450 09/13/2016 [facility] HEMATOLOGY MPV 8.0 fL 7.4 - 10.4 09/13/2016 [facility] WBC 7.3 K/CMM 3.7 - 10.4 09/13/2016 [facility] HEMATOLOGY RBC 4.15 M/CMM 4.70 - 6.10 09/13/2016 [facility] HEMATOLOGY Hgb 11.2 g/dL 14.0 - 18.0 09/13/2016 [facility] CHEM PANEL eGFR 73 mL/min/1.73m2 09/12/2016 Result Comment: The eGFR is calculated using the CKD-EPI formula. In most young, healthy individuals the eGFR will be >90 mL/min/1.73m2. The eGFR declines with age. An eGFR of 60-89 may be normal in some populations, particularly the elderly, for whom the CKD-EPI formula has not been extensively validated. Use of the eGFR is not recommended in the following populations: Individuals with unstable creatinine concentrations, including patients and those with serious co-morbid conditions. Patients with extremes in muscle mass or diet. The data above are obtained from the National Kidney Disease Education Program (NKDEP) which additionally recommends that when the eGFR is used in patients with extremes of body mass index for purposes of drug dosing, the eGFR should be multiplied by the estimated BMI. [facility] CHEM PANEL Albumin Lvl 2.9 g/dL 3.5 - 5.0 09/12/2016 [facility] CHEM PANEL ALT 15 unit/L 0 - 65 09/12/2016 [facility] CHEM PANEL Bili Total 0.9 mg/dL 0.2 - 1.3 09/12/2016 [facility] CHEM PANEL Alk Phos 47 unit/L 39 - 136 09/12/2016 [facility] CHEM PANEL AST 10 unit/L 0 - 37 09/12/2016 [facility] CHEM PANEL Creatinine Lvl 0.98 mg/dL 0.50 - 1.40 09/12/2016 [facility] CHEM PANEL Sodium Lvl 140 meq/L 135 - 145 09/12/2016 [facility] CHEM PANEL Chloride Lvl 106 meq/L 95 - 109 09/12/2016 [facility] CHEM PANEL Potassium Lvl 4.3 meq/L 3.5 - 5.1 09/12/2016 [facility] CHEM PANEL Total Protein 6.3 g/dL 6.4 - 8.4 09/12/2016 [facility] CHEM PANEL Calcium Lvl 7.9 mg/dL 8.5 - 10.5 09/12/2016 [facility] CHEM PANEL CO2 26 meq/L 24 - 32 09/12/2016 [facility] CHEM PANEL Glucose Lvl 142 mg/dL 70 - 99 09/12/2016 [facility] CHEM PANEL BUN 15 mg/dL 7 - 22 09/12/2016 [facility] CHEM PANEL AGAP 12.3 meq/L 10.0 - 20.0 09/12/2016 [facility] CHEM PANEL B/C Ratio 15 6 - 25 09/12/2016 [facility] CHEM PANEL Globulin 3.4 g/dL 2.7 - 4.2 09/12/2016 [facility] CHEM PANEL A/G Ratio 0.9 0.7 - 1.6 09/12/2016 [facility] MCH 26.8 pg 27.0 - 31.0 09/12/2016 [facility] RDW 15.8 % 11.5 - 14.5 09/12/2016 [facility] MCHC 32.9 g/dL 32.0 - 36.0 09/12/2016 [facility] Platelet 195 K/CMM 133 - 450 09/12/2016 [facility] MPV 7.7 fL 7.4 - 10.4 09/12/2016 [facility] RBC 4.38 M/CMM 4.70 - 6.10 09/12/2016 [facility] Hgb 11.7 g/dL 14.0 - 18.0 09/12/2016 [facility] Hct 35.6 % 42.0 - 54.0 09/12/2016 [facility] MCV 81.4 fL 80.0 - 94.0 09/12/2016 [facility] WBC 9.0 K/CMM 3.7 - 10.4 09/12/2016 [facility] Segs 79.8 % 45.0 - 75.0 09/12/2016 [facility] Lymphocytes 11.1 % 20.0 - 40.0 09/12/2016 [facility] Monocytes # 0.7 K/CMM 0.0 - 0.8 09/12/2016 [facility] HEMATOLOGY Basophils 0.6 % 0.0 - 1.0 09/12/2016 [facility] Basophils # 0.1 K/CMM 0.0 - 0.2 09/12/2016 [facility] HEMATOLOGY Monocytes 8.3 % 2.0 - 12.0 09/12/2016 [facility] HEMATOLOGY Eosinophils 0.2 % 0.0 - 4.0 09/12/2016 [facility] HEMATOLOGY Segs-Bands # 7.2 K/CMM 1.5 - 8.1 09/12/2016 [facility] HEMATOLOGY Lymphocytes # 1.0 K/CMM 1.0 - 5.5 09/12/2016 [facility] SPECIAL CHEMISTRY Hgb A1C 5.9 % <=5.6 % 09/12/2016 [facility] Hip 2/3 views uni DX Hip 2/3 views uni DX Hip 2/3 views uni DX CLINICAL HISTORY: start: 1506 end: 1619 dose: 10.13 mGy ft: 1:16 minutes - OR 10 GE elite #4 COMPARISON: 09/10/2016 FINDINGS/IMPRESSION: Multiple fluoroscopic spot views of the left hip reveal pinning of the femoral neck fracture. SL: [id number] 09/11/2016 - - Read by: Chuck Christian MD Dictated Date/time: 09/11/16 16:55 Electronically Signed by: Chuck Christian MD 09/11/16 16:56 FINAL REPORT [facility] CHEM PANEL Globulin 3.7 g/dL 2.7 - 4.2 09/11/2016 [facility] CHEM PANEL A/G Ratio 0.9 0.7 - 1.6 09/11/2016 [facility] CHEM PANEL B/C Ratio 23 6 - 25 09/11/2016 [facility] CHEM PANEL AGAP 13.2 meq/L 10.0 - 20.0 09/11/2016 [facility] CHEM PANEL eGFR 71 mL/min/1.73m2 09/11/2016 Result Comment: The eGFR is calculated using the CKD-EPI formula. In most young, healthy individuals the eGFR will be >90 mL/min/1.73m2. The eGFR declines with age. An eGFR of 60-89 may be normal in some populations, particularly the elderly, for whom the CKD-EPI formula has not been extensively validated. Use of the eGFR is not recommended in the following populations: Individuals with unstable creatinine concentrations, including patients and those with serious co-morbid conditions. Patients with extremes in muscle mass or diet. The data above are obtained from the National Kidney Disease Education Program (NKDEP) which additionally recommends that when the eGFR is used in patients with extremes of body mass index for purposes of drug dosing, the eGFR should be multiplied by the estimated BMI. [facility] CHEM PANEL Creatinine Lvl 1.00 mg/dL 0.50 - 1.40 09/11/2016 [facility] CHEM PANEL BUN 23 mg/dL 7 - 22 09/11/2016 [facility] CHEM PANEL Glucose Lvl 109 mg/dL 70 - 99 09/11/2016 [facility] CHEM PANEL Sodium Lvl 141 meq/L 135 - 145 09/11/2016 [facility] CHEM PANEL Albumin Lvl 3.4 g/dL 3.5 - 5.0 09/11/2016 [facility] CHEM PANEL ALT 14 unit/L 0 - 65 09/11/2016 [facility] CHEM PANEL CO2 26 meq/L 24 - 32 09/11/2016 [facility] CHEM PANEL Total Protein 7.1 g/dL 6.4 - 8.4 09/11/2016 [facility] CHEM PANEL Chloride Lvl 106 meq/L 95 - 109 09/11/2016 [facility] CHEM PANEL Potassium Lvl 4.2 meq/L 3.5 - 5.1 09/11/2016 [facility] CHEM PANEL Calcium Lvl 8.6 mg/dL 8.5 - 10.5 09/11/2016 [facility] CHEM PANEL AST 11 unit/L 0 - 37 09/11/2016 [facility] CHEM PANEL Bili Total 0.7 mg/dL 0.2 - 1.3 09/11/2016 [facility] CHEM PANEL Alk Phos 63 unit/L 39 - 136 09/11/2016 [facility] CHEM PANEL Magnesium Lvl 2.1 mg/dL 1.8 - 2.4 09/11/2016 [facility] HEMATOLOGY Monocytes # 0.6 K/CMM 0.0 - 0.8 09/11/2016 [facility] HEMATOLOGY Lymphocytes # 1.0 K/CMM 1.0 - 5.5 09/11/2016 [facility] HEMATOLOGY Basophils # 0.1 K/CMM 0.0 - 0.2 09/11/2016 [facility] HEMATOLOGY Eosinophils # 0.1 K/CMM 0.0 - 0.5 09/11/2016 [facility] HEMATOLOGY Monocytes 6.2 % 2.0 - 12.0 09/11/2016 [facility] HEMATOLOGY Eosinophils 0.8 % 0.0 - 4.0 09/11/2016 [facility] HEMATOLOGY Segs-Bands # 7.3 K/CMM 1.5 - 8.1 09/11/2016 [facility] HEMATOLOGY Basophils 0.6 % 0.0 - 1.0 09/11/2016 [facility] Segs 81.3 % 45.0 - 75.0 09/11/2016 [facility] Lymphocytes 11.1 % 20.0 - 40.0 09/11/2016 [facility] MPV 7.8 fL 7.4 - 10.4 09/11/2016 [facility] RDW 15.8 % 11.5 - 14.5 09/11/2016 [facility] Platelet 212 K/CMM 133 - 450 09/11/2016 [facility] MCHC 32.7 g/dL 32.0 - 36.0 09/11/2016 [facility] MCH 26.7 pg 27.0 - 31.0 09/11/2016 [facility] MCV 81.5 fL 80.0 - 94.0 09/11/2016 [facility] Hct 36.9 % 42.0 - 54.0 09/11/2016 [facility] RBC 4.53 M/CMM 4.70 - 6.10 09/11/2016 [facility] Hgb 12.1 g/dL 14.0 - 18.0 09/11/2016 [facility] WBC 9.0 K/CMM 3.7 - 10.4 09/11/2016 [facility] BLOOD BANK RESULTS AB Sendout Int Anti-M 09/11/2016 [facility] BLOOD BANK RESULTS ABO/Rh O POS 09/11/2016 [facility] BLOOD [facility] RESULTS Antibody Scrn Positive 1 (09/11/16 12:17 AM) 09/11/2016 Result Comment: "Significant Findings called to Ravin Cantu__at 09/11/2016 01:22__by hp__.Read Back OK." [facility] BLOOD [facility] RESULTS RBC product Product available 2 (09/10/16 11:43 PM) 09/11/2016 Result Comment: 09/11/2016 11:09 [id number] Spoke to Conchita Garzon 09/11/2016 11:09 ROGERS [facility] ELECTROLYTES AGAP 13.3 meq/L 10.0 - 20.0 09/11/2016 [facility] ELECTROLYTES eGFR 57 mL/min/1.73m2 09/11/2016 Result Comment: The eGFR is calculated using the CKD-EPI formula. In most young, healthy individuals the eGFR will be >90 mL/min/1.73m2. The eGFR declines with age. An eGFR of 60-89 may be normal in some populations, particularly the elderly, for whom the CKD-EPI formula has not been extensively validated. Use of the eGFR is not recommended in the following populations: Individuals with unstable creatinine concentrations, including patients and those with serious co-morbid conditions. Patients with extremes in muscle mass or diet. The data above are obtained from the National Kidney Disease Education Program (NKDEP) which additionally recommends that when the eGFR is used in patients with extremes of body mass index for purposes of drug dosing, the eGFR should be multiplied by the estimated BMI. [facility] ELECTROLYTES CO2 26 meq/L 24 - 32 09/11/2016 [facility] ELECTROLYTES Chloride Lvl 107 meq/L 95 - 109 09/11/2016 [facility] ELECTROLYTES Potassium Lvl 4.3 meq/L 3.5 - 5.1 09/11/2016 [facility] ELECTROLYTES Calcium Lvl 8.8 mg/dL 8.5 - 10.5 09/11/2016 [facility] ELECTROLYTES Sodium Lvl 142 meq/L 135 - 145 09/11/2016 [facility] ELECTROLYTES Glucose Lvl 106 mg/dL 70 - 99 09/11/2016 [facility] ELECTROLYTES BUN 25 mg/dL 7 - 22 09/11/2016 [facility] ELECTROLYTES Creatinine Lvl 1.20 mg/dL 0.50 - 1.40 09/11/2016 [facility] HEMATOLOGY Eosinophils # 0.1 K/CMM 0.0 - 0.5 09/11/2016 [facility] HEMATOLOGY Lymphocytes # 0.9 K/CMM 1.0 - 5.5 09/11/2016 [facility] HEMATOLOGY Monocytes # 0.6 K/CMM 0.0 - 0.8 09/11/2016 [facility] HEMATOLOGY Basophils 0.5 % 0.0 - 1.0 09/11/2016 [facility] HEMATOLOGY Segs-Bands # 9.3 K/CMM 1.5 - 8.1 09/11/2016 [facility] HEMATOLOGY Monocytes 5.4 % 2.0 - 12.0 09/11/2016 [facility] HEMATOLOGY Segs 85.2 % 45.0 - 75.0 09/11/2016 [facility] HEMATOLOGY Lymphocytes 7.9 % 20.0 - 40.0 09/11/2016 [facility] HEMATOLOGY Eosinophils 1.0 % 0.0 - 4.0 09/11/2016 [facility] HEMATOLOGY Basophils # 0.1 K/CMM 0.0 - 0.2 09/11/2016 [facility] HEMATOLOGY PT 13.1 s 12.0 - 14.7 09/11/2016 [facility] HEMATOLOGY INR 0.97 0.85 - 1.17 09/11/2016 [facility] HEMATOLOGY PTT 30.6 s 22.9 - 35.8 09/11/2016 [facility] URINE AND STOOL UA Urobilinogen <=1.0 mg/dL 0.1 - 1.0 09/11/2016 [facility] URINE AND STOOL UA Color Ltyellow 09/11/2016 [facility] URINE AND STOOL UA Sq Epi None Seen 09/11/2016 [facility] URINE AND STOOL UA Blood Small *ABN* (09/10/16 10:25 PM) Negative 09/11/2016 [facility] URINE AND STOOL UA Nitrite Negative (09/10/16 10:25 PM) Negative 09/11/2016 [facility] URINE AND STOOL UA Bili Negative *NA* (09/10/16 10:25 PM) Negative 09/11/2016 [facility] URINE AND STOOL UA RBC 4 /HPF 0 - 2 09/11/2016 [facility] URINE AND STOOL UA Mucus Few /LPF None Seen /LPF 09/11/2016 [facility] URINE AND STOOL UA Spec Grav 1.020 <=1.030 09/11/2016 [facility] URINE AND STOOL UA pH 5.0 5.0 - 8.0 09/11/2016 [facility] URINE AND STOOL UA Turbidity Clear (09/10/16 10:25 PM) Clear 09/11/2016 [facility] URINE AND STOOL UA Glucose Negative mg/dL Negative mg/dL 09/11/2016 [facility] URINE AND STOOL UA Ketones Negative mg/dL Negative mg/dL 09/11/2016 [facility] URINE AND STOOL UA Protein Negative mg/dL Negative mg/dL 09/11/2016 [facility] URINE AND STOOL UA Leuk Est Large *ABN* (09/10/16 10:25 PM) Negative 09/11/2016 [facility] URINE AND STOOL UA WBC 18 /HPF 0 - 5 09/11/2016 [facility] Chest 1view DX Chest 1view DX Study: Chest 1view DX Clinical Indication: Pain Post Trauma - fall Comparison: Chest x-ray from 04/26/2016 FINDINGS: The cardiac silhouette is normal in size. Aortic arch calcification is present. The lungs are clear and without consolidation or congestion. No pleural effusion or pneumothorax is seen. The osseous structures are unremarkable. IMPRESSION: No acute cardiopulmonary disease. SL: [place] 09/10/2016 - - Read by: Brian Adame MD Dictated Date/time: 09/10/16 22:46 Electronically Signed by: Brian Adame MD 09/10/16 22:47 FINAL REPORT [facility] Knee 1-2 Views unilateral DX Knee 1-2 Views unilateral DX Study: Left knee, 2 views Clinical Indication: Left knee pain post fall Comparison: None FINDINGS: Multiple views of the left knee show no acute bony fracture or joint dislocation. Moderate-severe medial femorotibial compartment osteoarthrosis is seen. Mild patellofemoral compartment osteoarthrosis is also noted. No joint effusion is seen. IMPRESSION: Osteoarthrosis of the left knee without acute bony abnormality. SL: [place] 09/10/2016 - - Read by: Brian Adame MD Dictated Date/time: 09/10/16 22:45 Electronically Signed by: Brian Adame MD 09/10/16 22:46 FINAL REPORT [facility] Hip 2/3 views uni DX Hip 2/3 views uni DX Study: Pelvis, single view. Left hip, 3 views Clinical Indication: Left hip pain post fall Comparison: None FINDINGS: Multiple views of the pelvis and left hip show an acute, displaced transcervical left femoral neck fracture. The remaining osseous structures are intact. IMPRESSION: Acute, displaced transcervical left femoral neck fracture. SL: [place] 09/10/2016 - - Read by: Brian Adame MD Dictated Date/time: 09/10/16 22:44 Electronically Signed by: Brian Adame MD 09/10/16 22:44 FINAL REPORT [facility] Pelvis AP DX Pelvis AP DX Study: Pelvis, single view. Left hip, 3 views Clinical Indication: Left hip pain post fall Comparison: None FINDINGS: Multiple views of the pelvis and left hip show an acute, displaced transcervical left femoral neck fracture. The remaining osseous structures are intact. IMPRESSION: Acute, displaced transcervical left femoral neck fracture. SL: [place] 09/10/2016 - - Read by: Brian Adame MD Dictated Date/time: 09/10/16 22:44 Electronically Signed by: Brian Adame MD 09/10/16 22:44 FINAL REPORT [facility] Hip 2/3 views uni DX Hip 2/3 views uni DX EXAM: Hip 2/3 views uni DX HISTORY: right hip pain COMPARISON: None AP and lateral views of the right hip. No fracture or dislocation is seen. There is mild chondrocalcinosis in the superior lateral labral cartilage. No evidence of focal osseous lesion or avascular necrosis. The joint space is maintained. IMPRESSION: Mild degenerative change. 07/02/2016 - - Read by: Jonnie Metz MD Dictated Date/time: 07/02/16 15:33 Electronically Signed by: Jonnie Metz MD 07/02/16 15:34 FINAL REPORT [facility] Chest 2 views DX Chest 2 views DX Exam: Two-view chest x-ray Reason for Exam: R05 Cough Comparison Exam: 06/18/2012 Discussion: Cardiomediastinal silhouette is within normal limits. Both hemidiaphragms well visualized. No pulmonary edema or pleural effusions. No focal lung consolidations. Trachea is midline. Mild amount of calcified plaque seen within the thoracic aortic arch. No acute bony abnormalities. Impression: 1. No acute cardiopulmonary abnormalities. 04/26/2016 - - Read by: Thomas Pina MD Dictated Date/time: 04/26/16 10:48 Electronically Signed by: Thomas Pina MD 04/26/16 10:50 FINAL REPORT [facility] Spine thoracic 2 views DX Spine thoracic 2 views DX Exam: Thoracic spine x-ray, 2 views Reason for Exam: neck and back pain Comparison Exam: None Discussion: Vertebral body heights are maintained. No spondylolisthesis. No scoliosis seen at the level of the thoracic spine. No suspicious osteoblastic or osteolytic lesions. Moderate multilevel degenerative disc disease seen within the thoracic spine. Note that a thoracic spine x-ray cannot rule out ligamentous injuries or spinal cord abnormalities. The visualized portions of the mediastinum are unremarkable. Impression: 1. Vertebral body heights are maintained. Moderate multilevel degenerative disc disease seen within the thoracic spine. 04/26/2016 - - Read by: Thomas Pina MD Dictated Date/time: 04/26/16 10:55 Electronically Signed by: Thomas Pina MD 04/26/16 10:59 FINAL REPORT [facility] Spine lumbar 2 or 3 views DX Spine lumbar 2 or 3 views DX Exam: Lumbar Spine X-ray, 3 views Reason for Exam: back pain Comparison Exam: None Discussion: 5 non rib-bearing lumbar vertebral bodies are seen. Vertebral body heights are maintained. No spondylolisthesis. Mild dextroscoliosis. 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 No suspicious osteoblastic or osteolytic lesions. Note that a lumbar spine x-ray cannot rule out ligamentous injuries or spinal cord abnormalities. No dilated loops of bowel within the visualized portions of the abdomen and pelvis. Impression: 1. Vertebral body heights are maintained. 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 12/13/2015 - - Read by: Thomas Pina MD Dictated Date/time: 12/13/15 15:04 Electronically Signed by: Thomas Pina MD 12/13/15 15:05 FINAL REPORT [facility] Vital Signs Vital Sign Value Date Comments Source Weight 70 01/15/2017 [facility] Heart Rate 78 01/15/2017 [facility] Systolic (mm Hg) 127 01/15/2017 [facility] Diastolic (mm Hg) 73 01/15/2017 [facility] Respitory Rate 20 01/15/2017 [facility] Height 165.1 cm 01/15/2017 [facility] BMI Calculated 25.68 01/15/2017 [facility] Systolic (mm Hg) 132 09/14/2016 [facility] Diastolic (mm Hg) 64 09/14/2016 [facility] Respitory Rate 18 09/14/2016 [facility] Temperature Oral (F) 98.3 F 09/14/2016 [facility] Heart Rate 83 09/14/2016 [facility] Respitory Rate 18 09/14/2016 [facility] Heart Rate 98 09/14/2016 [facility] Systolic (mm Hg) 116 09/14/2016 [facility] Diastolic (mm Hg) 70 09/14/2016 [facility] Temperature Oral (F) 98.0 F 09/14/2016 [facility] Temperature Oral (F) 98.7 F 09/14/2016 [facility] Respitory Rate 17 09/14/2016 [facility] Heart Rate 84 09/14/2016 [facility] Systolic (mm Hg) 134 09/14/2016 [facility] Diastolic (mm Hg) 66 09/14/2016 [facility] Weight 65.909 09/11/2016 [facility] Height 170.18 cm 09/11/2016 [facility] BMI Calculated 22.76 09/11/2016 [facility] Encounters Location Location Details Encounter Type Encounter Number Reason For Visit Attending Provider ADM Date DC Date Status Source [facility] [place] [facility] [id number] Caio Luli 12/13/2015 12/14/2015 [facility] [place] [facility] [place] [facility] [id number] Caio Luli 04/26/2016 04/27/2016 [facility] [place] [facility] [place] [facility] [id number] Caio Luli 07/02/2016 07/03/2016 [facility] [place] [facility] Inpatient [id number] Zoranabhinav Jamisontabitha 09/11/2016 09/14/2016 [facility] Emergency [id number] Sandeep Perez 01/15/2017 01/15/2017 [facility] OP Therapy Patients [id number] Jon Mathis 01/30/2017 03/01/2017 [facility] OP Therapy Patients [id number] Jon Mathis 03/04/2017 04/03/2017 [facility] OP Therapy Patients [id number] Edconnor Mathis 04/03/2017 05/03/2017 [facility] Procedures Procedure Code Date Perfomer Comments Source Prostate destructive procedure<sup>1</sup> [id number] Pt. does not know what happened during the procedure, he stated,"I know I had a surgery on my prostate, but I don't know what it was". [facility] Prostate destructive procedure<sup>1</sup> [id number] Pt. does not know what happened during the procedure, he stated,"I know I had a surgery on my prostate, but I don't know what it was". [facility]
--- OUTSIDE RECORDS SUMMARY | 2018-09-15 08:44 | XMS REPORT ---
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 Allergies, Adverse Reactions, Alerts This patient has no known allergies or adverse reactions. Medications This patient has no known medications. Results Test Description Test Time Test Comments Text Results Atomic Results Result Comments US PELVIC (NON OB) [place] OR F/U 2018-06-05 08:48:00 [place] [address] Patient Name: SIVA REESE MR #: [id number] : 1935 Age/Sex: 82/M Req #: [id number] Adm Physician: Ordered by: PAUL CLAY MD Report #: [id number] Location: Room/Bed: Procedure: [id number] US/US PELVIC (NON OB) [place] OR F/U Exam Date: Exam Time: REPORT STATUS: Signed EXAM: Renal Ultrasound and pelvic ultrasound (non OB) INDICATION: CKD stage 3 COMPARISON: None TECHNIQUE: Transverse and longitudinal images of the kidneys and bladder were obtained. FINDINGS: Right Kidney: Length: 10.4 cm Appearance: Normal echogenicity. Collecting system: No hydronephrosis Stones: None Cyst/Mass: None Left Kidney: Length: 11.7 cm Appearance: Normal echogenicity. Collecting sy stem: No hydronephrosis Stones: None Cyst/Mass: None Bladder: Unremarkable appearance. Bilateral ureteral jets are noted. Prostate is not seen and pelvis is obscured by overlying bowel gas and body habitus. IMPRESSION: Unremarkable renal and bladder ultrasound. No evidence of hydronephrosis. Signed by: Dr. Jarrett Persaud MD on 06/05/2018 8:51 AM Dictated By: JARRETT PERSAUD MD 0 Transcribed By: COREY on 06/05/18850 COPY TO: PAUL CLAY MD US RENAL RETROPERITONEAL COMP 2018-06-05 08:48:00 [place] [address] Patient Name: SIVA REESE MR #: [id number] : 1935 Age/Sex: 82/M Req #: [id number] Adm Physician: Ordered by: PAUL CLAY MD Report #: [id number] Location: Room/Bed: Procedure: [id number] US/US RENAL RETROPERITONEAL COMP Exam Date: Exam Time: REPORT STATUS: Signed EXAM: Renal Ultrasound and pelvic ultrasound (non OB) INDICATION: CKD stage 3 COMPARISON: None TECHNIQUE: Transverse and longitudinal images of the kidneys and bladder were obtained. FINDINGS: Right Kidney: Length: 10.4 cm Appearance: Normal echogenicity. Collecting system: No hydronephrosis Stones: None Cyst/Mass: None Left Kidney: Length: 11.7 cm Appearance: Normal echogenicity. Collecting sy stem: No hydronephrosis Stones: None Cyst/Mass: None Bladder: Unremarkable appearance. Bilateral ureteral jets are noted. Prostate is not seen and pelvis is obscured by overlying bowel gas and body habitus.
--- OUTSIDE RECORDS SUMMARY | 2018-09-15 08:44 | XMS REPORT | Summary of Care ---
Author Author [facility] [place] Organization [facility] [place] Address Unknown Phone Unavailable Encounter HQ Encntr_alias(FIN) [id number] Date(s): 04/26/16 - 04/26/16 [facility] [place] [address] [place] [phone] Discharge Disposition: Home or Self Care Attending Physician: Caio Rockwell MD Vital Signs No data available for this section Problem List No data available for this section Allergies, Adverse Reactions, Alerts No data available for this section Medications No data available for this section Results No data available for this section Immunizations No data available for this section Procedures No data available for this section Social History No data available for this section Assessment and Plan No data available for this section
--- OUTSIDE RECORDS SUMMARY | 2018-09-15 08:44 | XMS REPORT | Summary of Care ---
Author Author [facility] Organization [facility] Address Unknown Phone Unavailable Encounter BRANDI Miller(AMADA) [id number] Date(s): 01/14/17 - 01/15/17 [facility] [address] [place] [address]- Discharge Diagnosis: Fall at home Discharge Disposition: Home or Self Care Attending Physician: Sandeep Perez MD Vital Signs Most recent to 1 oldest [Reference Range]: Height 165.1 cm (01/14/17 10:23 PM) Blood Pressure 127/73 mmHg [90-140/60-90 mmHg] (01/14/17 10:23 PM) Respiratory Rate 20 BRMIN [14-20 BRMIN] (01/14/17 10:23 PM) Peripheral Pulse 78 bpm Rate [60-100 bpm] (01/14/17 10:23 PM) Weight 70 kg (01/14/17 10:23 PM) Body Mass Index 25.68 m2 (01/14/17 10:23 PM) Problem List Condition Effective Dates Status Health Status Informant DM (diabetes Resolved mellitus)(Confirmed) Arthritis(Confirmed) Resolved BPH (benign Resolved prostatic hyperplasia)(Confirm ed) Allergies, Adverse Reactions, Alerts Substance Reaction Severity Status NKDA Active Medications Saline Flush 0.9% 10 mL, Route: IVP, Drug Form: INJ, Dosing Weight 70, kg, PRN, PRN Line Flush, St art date: 01/14/17 22:36:00 CDT, Duration: 30 day, Stop date: 02/13/17 22:35:00 CDT Notes: (Same as: BD Posiflush) Start Date: 01/14/17 Stop Date: 01/15/17 Status: Discontinued Results No data available for this section Immunizations No data available for this section Procedures Procedure Date Related Diagnosis Body Site Prostate destructive procedure1 1Pt. does not know what happened during the procedure, he stated,"I know I had a surgery on my prostate, but I don't know what it was". Social History Social History Type Response Smoking Status Never smoker; Exposure to Tobacco Smoke None; Cigarette Smoking Last 365 Days No; Reg Smoking Cessation Counseling No Assessment and Plan No data available for this section
--- OUTSIDE RECORDS SUMMARY | 2018-09-15 08:44 | XMS REPORT | Summary of Care ---
Author Author [facility] Address Unknown Phone Unavailable Encounter HQ Encntr_alibartolo(FIN) [id number] Date(s): 04/03/17 - 05/02/17 [facility] Discharge Disposition: Home or Self Care Attending Physician: Jon Mathis MD Vital Signs No data available for this section Problem List Condition Effective Dates Status Health Status Informant DM (diabetes Resolved mellitus)(Confirmed) Arthritis(Confirmed) Resolved BPH (benign Resolved prostatic hyperplasia)(Confirm ed) Allergies, Adverse Reactions, Alerts Substance Reaction Severity Status NKDA Active Medications No data available for this section [...]
--- OUTSIDE RECORDS SUMMARY | 2018-09-15 08:44 | XMS REPORT | Summary of Care ---
Author Author [facility] [place] Organization [facility] [place] Address Unknown Phone Unavailable Encounter [facility] Encntr_alias(FIN) [id number] Date(s): 07/02/16 - 07/02/16 [facility] [place] [address] [place] [phone] Discharge Disposition: Home or Self Care Attending [...]
--- OUTSIDE RECORDS SUMMARY | 2018-09-15 08:44 | XMS REPORT | Summary of Care ---
Author Author [facility] Organization [facility] Address Unknown Phone Unavailable Encounter HQ Paul(AMADA) [id number] Date(s): 09/10/16 - 09/14/16 [facility] [address] [place] [address]- Discharge Disposition: [facility] Attending Physician: Madelin Juarez MD Admitting Physician: Madelin Juarez MD Vital Signs 1 2 3 Most recent to oldest [Reference Range]: 170.18 cm (09/10/16 9:21 PM) Height 98.3 DegF (09/14/16 3:50 PM) 98.0 DegF (09/14/16 11:58 AM) 98.7 DegF (09/14/16 7:54 AM) Temperature Oral [96.4-99.1 DegF] 132/64 mmHg (09/14/16 3:50 PM) 116/70 mmHg (09/14/16 11:58 AM) 134/66 mmHg (09/14/16 7:54 AM) Blood Pressure [90-140/60-90 mmHg] 18 BRMIN (09/14/16 3:50 PM) 18 BRMIN (09/14/16 11:58 AM) 17 BRMIN (09/14/16 7:54 AM) Respiratory Rate [14-20 BRMIN] 83 bpm (09/14/16 3:50 PM) 98 bpm (09/14/16 11:58 AM) 84 bpm (09/14/16 7:54 AM) Peripheral Pulse Rate [60-100 bpm] 65.909 kg (09/10/16 9:21 PM) Weight 22.76 m2 (09/10/16 9:21 PM) Body Mass Index Problem List Condition Effective Dates Status Health Status Informant DM (diabetes Resolved mellitus)(Confirmed) Arthritis(Confirmed) Resolved BPH (benign Resolved prostatic hyperplasia)(Confirm ed) Allergies, Adverse Reactions, Alerts Substance Reaction Severity Status NKDA Active Medications acetaminophen-hydrocodone 325 mg-10 mg oral tablet 1 tab, Route: PO, Drug Form: TAB, Dosing Weight 65.909, kg, Q4H, PRN Pain Score 7-10, Start date: 09/11/16 16:23:00 CDT, Duration: 30 day, Stop date: 10/11/16 1 6:22:00 CDT Notes: Do not exceed 4gm/day of acetaminophen. (Same as: [place] 325/10) Start Date: 09/11/16 Stop Date: 09/14/16 Status: Discontinued Ancef 2 gm, 100 mL, Route: IVPB, Drug form: INJ, ONCE, Dosing Weight 65.909, kg, Prior ity: STAT, Start date: 09/10/16 23:43:00 CDT, Stop date: 09/10/16 23:43:00 CDT Notes: Same as: Ancef Start Date: 09/10/16 Stop Date: 09/11/16 Status: Completed ceFAZolin (ANES) Route: IV, Drug form: INJ, ONCE, Stop date: 09/11/16 15:56:00 CDT Start Date: 09/11/16 Stop Date: 09/11/16 Status: Completed ceFAZolin (SCIP) + sodium chloride 0.9% INJ 100 mL 1 gm, Route: IVPB, [id number], Dosing Weight 65.909, kg, Start date: 09/11/16 23:00: 00 CDT, Duration: 1 doses or times, Stop date: 09/11/16 23:00:00 CDT Notes: (Same As: Ancef, Kefzol) MEDICATION WASTE Product Size: 1000 mgP roduct Wasted: ___ mg Start Date: 09/11/16 Stop Date: 09/11/16 Status: Completed dexamethasone (ANES) Route: IV, Drug form: INJ, ONCE, Stop date: 09/11/16 16:31:00 CDT Start Date: 09/11/16 Stop Date: 09/11/16 Status: Completed Dextrose 50% Syringe 12.5 gm, 25 mL, Route: IVP, Drug Form: INJ, Dosing Weight 65.909, kg, PRN, PRN B lood Glucose Results, Start date: 09/12/16 12:02:00 CDT, Duration: 30 day, Stop date: 10/12/16 12:01:00 CDT Start Date: 09/12/16 Stop Date: 09/14/16 Status: Discontinued Dextrose 50% Syringe 25 gm, 50 mL, Route: IVP, Drug Form: INJ, Dosing Weight 65.909, kg, PRN, PRN Blo od Glucose Results, Start date: 09/12/16 12:02:00 CDT, Duration: 30 day, Stop da te: 10/12/16 12:01:00 CDT Start Date: 09/12/16 Stop Date: 09/14/16 Status: Discontinued docusate sodium 100 mg oral capsule 200 mg, 2 cap, Route: PO, Drug form: CAP, BID, Dosing Weight 65.909, kg, Start d ate: 09/11/16 17:00:00 CDT, Stop date: 10/11/16 9:00:00 CDT Notes: (Same as: Colace) (Do Not Crush) Start Date: 09/11/16 Stop Date: 09/14/16 Status: Discontinued Dulcolax Laxative 5 mg, 1 tab, Route: PO, Drug form: ECTAB, Q24H, Dosing Weight 65.909, kg, PRN Co nstipation, Start date: 09/11/16 16:23:00 CDT, Duration: 30 day, Stop date: 10/23 16:22:00 CDT Notes: (Same As: Dulcolax, Correctol) (Do Not Crush) "Do Not Crush" Start Date: 09/11/16 Stop Date: 09/14/16 Status: Discontinued enoxaparin 30 mg, 0.3 mL, Route: SUB-Q, Drug form: INJ, [id number], Dosing Weight 65.909, kg, Start date: 09/12/16 6:00:00 CDT, Duration: 30 day, Stop date: 10/11/16 18:00:00 CDT Notes: (Same as: Lovenox) Start Date: 09/12/16 Stop Date: 09/14/16 Status: Discontinued enoxaparin 30 mg, 0.3 mL, Route: SUB-Q, Drug form: INJ, [id number], Dosing Weight 65.909, kg, Start date: 09/11/16 2:00:00 CDT, Duration: 30 day, Stop date: 10/10/16 14:00:00 CDT Notes: (Same as: Lovenox) Start Date: 09/11/16 Stop Date: 09/11/16 Status: Discontinued enoxaparin 30 mg=0.3 mL, SUB-Q, Daily, 0 Refill(s) Start Date: 09/14/16 Status: Ordered ePHEDrine (ANES) Route: IV, Drug form: INJ, ONCE, Stop date: 09/11/16 16:31:00 CDT Start Date: 09/11/16 Stop Date: 09/11/16 Status: Completed fentaNYL (ANES) Route: IV, Drug form: INJ, ONCE, Stop date: 09/11/16 15:51:00 CDT Start Date: 09/11/16 Stop Date: 09/11/16 Status: Completed finasteride 5 mg, 1 tab, Route: PO, Drug form: TAB, Daily, Dosing Weight 65.909, kg, Priorit y: STAT, Start date: 09/12/16 12:02:00 CDT, Stop date: 10/12/16 9:00:00 CDT Notes: (Same as: Proscar) "Do Not Crush"Women of childbearing age should not murali ch or handle broken tablets Start Date: 09/12/16 Stop Date: 09/14/16 Status: Discontinued finasteride 5 mg oral tablet 5 mg=1 tab, PO, Daily, 0 Refill(s) Start Date: 09/11/16 Status: Ordered glucagon 1 mg, Route: IM, Drug form: PDR/INJ, PRN, Dosing Weight 65.909, kg, PRN Blood Gl ucose Results, Start date: 09/12/16 12:02:00 CDT, Duration: 30 day, Stop date: 0 10/12/16 12:01:00 CDT Start Date: 09/12/16 Stop Date: 09/14/16 Status: Discontinued glycopyrrolate (ANES) Route: IV, Drug form: INJ, ONCE, Stop date: 09/11/16 16:40:00 CDT Start Date: 09/11/16 Stop Date: 09/11/16 Status: Completed ibuprofen 800 mg oral tablet 800 mg=1 tab, PO, TID, 0 Refill(s) Start Date: 09/11/16 Stop Date: 09/14/16 Status: Discontinued insulin aspart 2 unit, 0.02 mL, Route: SUB-Q, Drug form: SOLN, Bedtime, Dosing Weight 65.909, k g, PRN Blood Glucose Results, Start date: 09/12/16 12:02:00 CDT, Duration: 30 da y, Stop date: 10/12/16 12:01:00 CDT Notes: Roll in palms of hands gently; Do not shake vigorously. (Same as: Merlyn Vargas)"single patient use only"WASTE: F/P - Black; E - Municipal Trash Bin Stable f or 28 days at room temperature.Expires in days from Date Start Date: 09/12/16 Stop Date: 09/14/16 Status: Discontinued insulin aspart 4 unit, 0.04 mL, Route: SUB-Q, Drug form: SOLN, Bedtime, Dosing Weight 65.909, k g, PRN Blood Glucose Results, Start date: 09/12/16 12:02:00 CDT, Duration: 30 da y, Stop date: 10/12/16 12:01:00 CDT Notes: Roll in palms of hands gently; Do not shake vigorously. (Same as: Merlyn Vargas)"single patient use only"WASTE: F/P - Black; E - Municipal Trash Bin Stable f or 28 days at room temperature.Expires in days from Date Start Date: 09/12/16 Stop Date: 09/14/16 Status: Discontinued insulin aspart 3 unit, 0.03 mL, Route: SUB-Q, Drug form: SOLN, Bedtime, Dosing Weight 65.909, k g, PRN Blood Glucose Results, Start date: 09/12/16 12:02:00 CDT, Duration: 30 da y, Stop date: 10/12/16 12:01:00 CDT Notes: Roll in palms of hands gently; Do not shake vigorously. (Same as: NovoTRENT Vargas)"single patient use only"WASTE: F/P - Black; E - Municipal Trash Bin Stable f or 28 days at room temperature.Expires in days from Date Start Date: 09/12/16 Stop Date: 09/14/16 Status: Discontinued insulin aspart 1 unit, 0.01 mL, Route: SUB-Q, Drug form: SOLN, TID-Before Meals, Dosing Weight 65.909, kg, PRN Blood Glucose Results, Start date: 09/12/16 12:02:00 CDT, Durati on: 30 day, Stop date: 10/12/16 12:01:00 CDT Notes: Roll in palms of hands gently; Do not shake vigorously. (Same as: NovoTRENT Vargas)"single patient use only"WASTE: F/P - Black; E - Municipal Trash Bin Stable f or 28 days at room temperature.Expires in days from Date Start Date: 09/12/16 Stop Date: 09/14/16 Status: Discontinued insulin aspart 2 unit, 0.02 mL, Route: SUB-Q, Drug form: SOLN, TID-Before Meals, Dosing Weight 65.909, kg, PRN Blood Glucose Results, Start date: 09/12/16 12:02:00 CDT, Durati on: 30 day, Stop date: 10/12/16 12:01:00 CDT Notes: Roll in palms of hands gently; Do not shake vigorously. (Same as: NovoTRENT Vargas)"single patient use only"WASTE: F/P - Black; E - Municipal Trash Bin Stable f or 28 days at room temperature.Expires in days from Date Start Date: 09/12/16 Stop Date: 09/14/16 Status: Discontinued insulin aspart 5 unit, 0.05 mL, Route: SUB-Q, Drug form: SOLN, TID-Before Meals, Dosing Weight 65.909, kg, PRN Blood Glucose Results, Start date: 09/12/16 12:02:00 CDT, Durati on: 30 day, Stop date: 10/12/16 12:01:00 CDT Notes: Roll in palms of hands gently; Do not shake vigorously. (Same as: Merlyn Vargas)"single patient use only"WASTE: F/P - Black; E - Municipal Trash Bin Stable f or 28 days at room temperature.Expires in days from Date Start Date: 09/12/16 Stop Date: 09/14/16 Status: Discontinued insulin aspart 3 unit, 0.03 mL, Route: SUB-Q, Drug form: SOLN, TID-Before Meals, Dosing Weight 65.909, kg, PRN Blood Glucose Results, Start date: 09/12/16 12:02:00 CDT, Durati on: 30 day, Stop date: 10/12/16 12:01:00 CDT Notes: Roll in palms of hands gently; Do not shake vigorously. (Same as: Merlyn Vargas)"single patient use only"WASTE: F/P - Black; E - Municipal Trash Bin Stable f or 28 days at room temperature.Expires in days from Date Start Date: 09/12/16 Stop Date: 09/14/16 Status: Discontinued insulin aspart 4 unit, 0.04 mL, Route: SUB-Q, Drug form: SOLN, TID-Before Meals, Dosing Weight 65.909, kg, PRN Blood Glucose Results, Start date: 09/12/16 12:02:00 CDT, Durati on: 30 day, Stop date: 10/12/16 12:01:00 CDT Notes: Roll in palms of hands gently; Do not shake vigorously. (Same as: Merlyn Vargas)"single patient use only"WASTE: F/P - Black; E - Municipal Trash Bin Stable f or 28 days at room temperature.Expires in days from Date Start Date: 09/12/16 Stop Date: 09/14/16 Status: Discontinued insulin aspart 1 unit, 0.01 mL, Route: SUB-Q, Drug form: SOLN, Bedtime, Dosing Weight 65.909, k g, PRN Blood Glucose Results, Start date: 09/12/16 12:02:00 CDT, Duration: 30 da y, Stop date: 10/12/16 12:01:00 CDT Notes: Roll in palms of hands gently; Do not shake vigorously. (Same as: NovoLO G)"single patient use only"WASTE: F/P - Black; E - Municipal Trash Bin Stable f or 28 days at room temperature.Expires in days from Date Start Date: 09/12/16 Stop Date: 09/14/16 Status: Discontinued Lactated Ringers 1,000 mL 1,000 mL, Rate: 40 ml/hr, Infuse over: 25 hr, Route: IV, Dosing Weight 65.909 kg , Total Volume: 1,000, Start date: 09/11/16 14:47:00 CDT, Duration: 1 day, Stop date: 09/12/16 14:46:00 CDT Start Date: 09/11/16 Stop Date: 09/11/16 Status: Discontinued Lactated Ringers 1,000 mL 1,000 mL, Rate: 100 ml/hr, Infuse over: 10 hr, Route: IV, Dosing Weight 65.909 k g, Total Volume: 1,000, Start date: 09/11/16 16:23:00 CDT, Duration: 30 day, Sto p date: 10/11/16 16:22:00 CDT Start Date: 09/11/16 Stop Date: 09/12/16 Status: Discontinued lidocaine (ANES) Route: IV, Drug form: INJ, ONCE, Stop date: 09/11/16 15:51:00 CDT Start Date: 09/11/16 Stop Date: 09/11/16 Status: Completed LR 1000 mL INJ (ANES) Route: IV, Total Volume: 1,000, Start date: 09/11/16 15:10:00 CDT, Stop date: 16:10:00 CDT Start Date: 09/11/16 Stop Date: 09/11/16 Status: Completed magnesium citrate 1.745 g/30 mL oral liquid 300 ml, Route: PO, Drug Form: LIQ, Dosing Weight 65.909, kg, ONCE, Start date: 0 09/12/16 17:56:00 CDT, Stop date: 09/12/16 17:56:00 CDT Notes: (Same as: Citrate of Magnesia)Concentration: 1.745 gm / 30 mL Start Date: 09/12/16 Stop Date: 09/13/16 Status: Completed melatonin 3 mg, 1 tab, Route: PO, Drug form: TAB, Bedtime, Dosing Weight 65.909, kg, PRN S leep, Start date: 09/11/16 16:24:00 CDT, Duration: 30 day, Stop date: 10/11/16 1 6:23:00 CDT, .. Notes: (Same as: Melatonin) Start Date: 09/11/16 Stop Date: 09/14/16 Status: Discontinued melatonin 3 mg oral tablet 3 mg=1 tab, PO, Bedtime, PRN Sleep, .., 0 Refill(s) Start Date: 09/14/16 Status: Ordered metFORMIN 500 mg, PO, BID, 0 Refill(s) Start Date: 09/11/16 Status: Ordered morphine Sulfate 2 mg, 1 mL, Route: IVP, Drug form: INJ, Q4H, Dosing Weight 65.909, kg, PRN Pain Score 7-10, Start date: 09/11/16 1:29:00 CDT, Duration: 30 day, Stop date: 10/11 1:28:00 CDT Notes: (Same as:MORPhine Sulfate) Start Date: 09/11/16 Stop Date: 09/14/16 Status: Discontinued morphine Sulfate 4 mg, 1 mL, Route: IVP, Drug form: SOLN, ONCE, Dosing Weight 65.909, kg, Priorit y: STAT, Start date: 09/10/16 22:14:00 CDT, Stop date: 09/10/16 22:14:00 CDT Notes: (Same as:MORPhine Sulfate) Start Date: 09/10/16 Stop Date: 09/10/16 Status: Completed naloxone 0.04 mg, Route: IVP, Q2MIN, Dosing Weight 65.909, kg, PRN Narcotic Reversal, Sta rt date: 09/11/16 16:23:00 CDT, Duration: 30 day, Stop date: 10/11/16 16:22:00 C DT Start Date: 09/11/16 Stop Date: 09/11/16 Status: Discontinued ondansetron 4 mg, 2 mL, Route: IVP, Drug form: INJ, Q8H, Dosing Weight 65.909, kg, PRN Nause a & Vomiting, Start date: 09/11/16 16:24:00 CDT, Duration: 30 day, Stop date: 10/11/16 16:23:00 CDT, .. Notes: (Same as: Olamide) MEDICATION WASTE Product Size: 4 mgProduct Was no: ___ mg Start Date: 09/11/16 Stop Date: 09/14/16 Status: Discontinued ondansetron 4 mg, 2 mL, Route: IVP, Drug form: INJ, Q6H, Dosing Weight 65.909, kg, PRN Nause a & Vomiting, Start date: 09/11/16 1:29:00 CDT, Duration: 30 day, Stop date: 10/11/16 1:28:00 CDT Notes: (Same as: Olamide) MEDICATION WASTE Product Size: 4 mgProduct Was no: ___ mg Start Date: 09/11/16 Stop Date: 09/11/16 Status: Deleted ondansetron 4 mg, 2 mL, Route: IVP, Drug form: INJ, ONCE, Dosing Weight 65.909, kg, Priority : STAT, Start date: 09/10/16 22:14:00 CDT, Stop date: 09/10/16 22:14:00 CDT Notes: (Same as: Olamide) MEDICATION WASTE Product Size: 4 mgProduct Was no: ___ mg Start Date: 09/10/16 Stop Date: 09/10/16 Status: Completed ondansetron 4 mg, Route: IVP, Q6H, Dosing Weight 65.909, kg, PRN Nausea & Vomiting, Start date: 09/11/16 16:23:00 CDT, Duration: 30 day, Stop date: 10/11/16 16:22:00 CDT Start Date: 09/11/16 Stop Date: 09/11/16 Status: Deleted ondansetron (ANES) Route: IV, Drug form: INJ, ONCE, Stop date: 09/11/16 16:31:00 CDT Start Date: 09/11/16 Stop Date: 09/11/16 Status: Completed phenylephrine (ANES) Route: IV, Drug form: INJ, ONCE, Stop date: 09/11/16 16:33:00 CDT Start Date: 09/11/16 Stop Date: 09/11/16 Status: Completed propofol (ANES) Route: IV, Drug form: INJ, ONCE, Stop date: 09/11/16 15:51:00 CDT Start Date: 09/11/16 Stop Date: 09/11/16 Status: Completed Rocephin + sodium chloride 0.9% INJ 100 mL 1 gm, Route: IVPB, [id number], Dosing Weight 65.909, kg, Start date: 09/11/16 4:00: 00 CDT, Duration: 30 day, Stop date: 10/10/16 4:00:00 CDT Notes: (Same As: Rocephin).Use with 100 mL NS and infuse over 30 min MEDICA TION WASTE Product Size: 1000 mgProduct Wasted: ___ mg Start Date: 09/11/16 Stop Date: 09/14/16 Status: Discontinued Saline Flush 0.9% 10 mL, Route: IVP, Drug Form: INJ, Dosing Weight 65.909, kg, PRN, PRN Line Flush , Start date: 09/10/16 23:08:00 CDT, Duration: 30 day, Stop date: 10/10/16 23:07 :00 CDT Notes: (Same as: BD Posiflush) Start Date: 09/10/16 Stop Date: 09/14/16 Status: Discontinued Saline Flush 0.9% 10 ml, Route: IVP, Drug Form: INJ, Dosing Weight 65.909, kg, PRN, PRN Line Flush , Start date: 09/11/16 1:29:00 CDT, Duration: 30 day, Stop date: 10/11/16 1:28:0 0 CDT Notes: (Same as: BD Posiflush) Start Date: 09/11/16 Stop Date: 09/14/16 Status: Discontinued sodium chloride 0.45% 1000 ml INJ 1,000 mL 1,000 mL, Rate: 100 ml/hr, Infuse over: 10 hr, Route: IV, Dosing Weight 65.909 k g, Total Volume: 1,000, Start date: 09/11/16 1:29:00 CDT, Duration: 30 day, Stop date: 10/11/16 1:28:00 CDT Start Date: 09/11/16 Stop Date: 09/11/16 Status: Discontinued sodium chloride 0.9% INJ 250 mL 250 mL, Rate: Account Services Specialist for use with blood product administration., Dosing Weight 65.909, kg, Route: IV, Total Volume: 250, Priority: Routine, Start Date: 7 23:43:00 CDT, Duration: 1 day, Stop date: 09/11/16 23:42:00 CDT, Replace Every : 24 hr Start Date: 09/10/16 Stop Date: 09/11/16 Status: Completed tamsulosin 0.4 mg, 1 cap, Route: PO, Drug form: CAP, Daily, Dosing Weight 65.909, kg, Prior ity: STAT, Start date: 09/12/16 12:02:00 CDT, Duration: 30 day, Stop date: 10/12 9:00:00 CDT Notes: (Same As: Flomax) "Do Not Crush" Start Date: 09/12/16 Stop Date: 09/14/16 Status: Discontinued tamsulosin 0.4 mg oral capsule 0.4 mg=1 cap, PO, Daily, 0 Refill(s) Start Date: 09/11/16 Status: Ordered tramadol 50 mg, 1 tab, Route: PO, Drug form: TAB, Q4H, Dosing Weight 65.909, kg, PRN Pain Score 4-6, Start date: 09/11/16 16:24:00 CDT, Duration: 30 day, Stop date: 10/23 16:23:00 CDT, .. Notes: Not to exceed 400mg/day. (Same As: Ultram) Start Date: 09/11/16 Stop Date: 09/14/16 Status: Discontinued Tylenol with Codeine #3 oral tablet 1 tab, PO, Q4H, PRN Pain, # 30 tab, 0 Refill(s) Start Date: 09/14/16 Status: Ordered Results BLOOD BANK RESULTS 1 2 3 Most recent to oldest [Reference Range]: O POS *Unknown* (09/11/16 12:17 AM) ABO/Rh Positive 1 (09/11/16 12:17 AM) Antibody Scrn Anti-M *Unknown* (09/11/16 1:59 AM) AB Sendout Int Product available 2 (09/10/16 11:43 PM) RBC product 1Result Comment: "Significant Findings called to Ravin Cantu__at 09/11/2016 01:22__by hp__.Read Back OK." 2Result Comment: 09/11/2016 11:09 [id number] Spoke to Conchita Garzon 09/11/2016 11:09 ROGERS ELECTROLYTES 1 2 3 Most recent to oldest [Reference Range]: 140 mEq/L (09/12/16 4:41 AM) 141 mEq/L (09/11/16 3:04 AM) 142 mEq/L (09/10/16 10:25 PM) Sodium Lvl [135-145 mEq/L] 4.3 mEq/L (09/12/16 4:41 AM) 4.2 mEq/L (09/11/16 3:04 AM) 4.3 mEq/L (09/10/16 10:25 PM) Potassium Lvl [3.5-5.1 mEq/L] 106 mEq/L (09/12/16 4:41 AM) 106 mEq/L (09/11/16 3:04 AM) 107 mEq/L (09/10/16 10:25 PM) Chloride Lvl [95-109 mEq/L] 26 mEq/L (09/12/16 4:41 AM) 26 mEq/L (09/11/16 3:04 AM) 26 mEq/L (09/10/16 10:25 PM) CO2 [24-32 mEq/L] 12.3 mEq/L (09/12/16 4:41 AM) 13.2 mEq/L (09/11/16 3:04 AM) 13.3 mEq/L (09/10/16 10:25 PM) AGAP [10.0-20.0 mEq/L] CHEM PANEL 1 2 3 Most recent to oldest [Reference Range]: 0.98 mg/dL (09/12/16 4:41 AM) 1.00 mg/dL (09/11/16 3:04 AM) 1.20 mg/dL (09/10/16 10:25 PM) Creatinine Lvl [0.50-1.40 mg/dL] 73 mL/min/1.73m2 1 *NA* (09/12/16 4:41 AM) 71 mL/min/1.73m2 2 *NA* (09/11/16 3:04 AM) 57 mL/min/1.73m2 3 *NA* (09/10/16 10:25 PM) eGFR 15 mg/dL (09/12/16 4:41 AM) 23 mg/dL *HI* (09/11/16 3:04 AM) 25 mg/dL *HI* (09/10/16 10:25 PM) BUN [7-22 mg/dL] 15 (09/12/16 4:41 AM) 23 (09/11/16 3:04 AM) B/C Ratio [6-25] 142 mg/dL *HI* (09/12/16 4:41 AM) 109 mg/dL *HI* (09/11/16 3:04 AM) 106 mg/dL *HI* (09/10/16 10:25 PM) Glucose Lvl [70-99 mg/dL] 6.3 g/dL *LOW* (09/12/16 4:41 AM) 7.1 g/dL (09/11/16 3:04 AM) Total Protein [6.4-8.4 g/dL] 2.9 g/dL *LOW* (09/12/16 4:41 AM) 3.4 g/dL *LOW* (09/11/16 3:04 AM) Albumin Lvl [3.5-5.0 g/dL] 3.4 g/dL (09/12/16 4:41 AM) 3.7 g/dL (09/11/16 3:04 AM) Globulin [2.7-4.2 g/dL] 0.9 (09/12/16 4:41 AM) 0.9 (09/11/16 3:04 AM) A/G Ratio [0.7-1.6] 7.9 mg/dL *LOW* (09/12/16 4:41 AM) 8.6 mg/dL (09/11/16 3:04 AM) 8.8 mg/dL (09/10/16 10:25 PM) Calcium Lvl [8.5-10.5 mg/dL] 2.1 mg/dL (09/11/16 3:04 AM) Magnesium Lvl [1.8-2.4 mg/dL] 15 unit/L (09/12/16 4:41 AM) 14 unit/L (09/11/16 3:04 AM) ALT [0-65 unit/L] 10 unit/L (09/12/16 4:41 AM) 11 unit/L (09/11/16 3:04 AM) AST [0-37 unit/L] 47 unit/L (09/12/16 4:41 AM) 63 unit/L (09/11/16 3:04 AM) Alk Phos [39-136 unit/L] 0.9 mg/dL (09/12/16 4:41 AM) 0.7 mg/dL (09/11/16 3:04 AM) Bili Total [0.2-1.3 mg/dL] 1Result Comment: The eGFR is calculated using the [...] from the National Kidney Disease Education Program ( NKDEP) which additionally recommends that when the eGFR is used in patients with extremes of body mass index for purposes of drug dosing, the eGFR should be mul tiplied by the estimated BMI. 2Result Comment: The eGFR is calculated using the [...] from the National Kidney Disease Education Program ( NKDEP) which additionally recommends that when the eGFR is used in patients with extremes of body mass index for purposes of drug dosing, the eGFR should be mul tiplied by the estimated BMI. 3Result Comment: The eGFR is calculated using the [...] from the National Kidney Disease Education Program ( NKDEP) which additionally recommends that when the eGFR is used in patients with extremes of body mass index for purposes of drug dosing, the eGFR should be mul tiplied by the estimated BMI. SPECIAL CHEMISTRY 1 2 3 Most recent to oldest [Reference Range]: 5.9 % *HI* (09/12/16 4:41 AM) Hgb A1C [<=5.6 %] URINE AND STOOL 1 2 3 Most recent to oldest [Reference Range]: Clear (09/10/16 10:25 PM) UA Turbidity [Clear] Ltyellow *NA* (09/10/16 10:25 PM) UA Color 5.0 (09/10/16 10:25 PM) UA pH [5.0-8.0] 1.020 (09/10/16 10:25 PM) UA Spec Grav [<=1.030] Negative mg/dL *NA* (09/10/16 10:25 PM) UA Glucose [Negative mg/dL] Small *ABN* (09/10/16 10:25 PM) UA Blood [Negative] Negative mg/dL *NA* (09/10/16 10:25 PM) UA Ketones [Negative mg/dL] Negative mg/dL (09/10/16 10:25 PM) UA Protein [Negative mg/dL] <=1.0 mg/dL *NA* (09/10/16 10:25 PM) UA Urobilinogen [0.1-1.0 mg/dL] Negative *NA* (09/10/16 10:25 PM) UA Bili [Negative] Large *ABN* (09/10/16 10:25 PM) UA Leuk Est [Negative] Negative (09/10/16 10:25 PM) UA Nitrite [Negative] 18 /HPF *HI* (09/10/16 10:25 PM) UA WBC [0-5 /HPF] 4 /HPF *HI* (09/10/16 10:25 PM) UA RBC [0-2 /HPF] None Seen *NA* (09/10/16 10:25 PM) UA Sq Epi Few /LPF *NA* (09/10/16 10:25 PM) UA Mucus [None Seen /LPF] HEMATOLOGY 1 2 3 Most recent to oldest [Reference Range]: 7.3 K/CMM (09/13/16 4:06 AM) 9.0 K/CMM (09/12/16 4:41 AM) 9.0 K/CMM (09/11/16 3:04 AM) WBC [3.7-10.4 K/CMM] 4.15 M/CMM *LOW* (09/13/16 4:06 AM) 4.38 M/CMM *LOW* (09/12/16 4:41 AM) 4.53 M/CMM *LOW* (09/11/16 3:04 AM) RBC [4.70-6.10 M/CMM] 11.2 g/dL *LOW* (09/13/16 4:06 AM) 11.7 g/dL *LOW* (09/12/16 4:41 AM) 12.1 g/dL *LOW* (09/11/16 3:04 AM) Hgb [14.0-18.0 g/dL] 34.1 % *LOW* (09/13/16 4:06 AM) 35.6 % *LOW* (09/12/16 4:41 AM) 36.9 % *LOW* (09/11/16 3:04 AM) Hct [42.0-54.0 %] 82.1 fL (09/13/16 4:06 AM) 81.4 fL (09/12/16 4:41 AM) 81.5 fL (09/11/16 3:04 AM) MCV [80.0-94.0 fL] 26.9 pg *LOW* (09/13/16 4:06 AM) 26.8 pg *LOW* (09/12/16 4:41 AM) 26.7 pg *LOW* (09/11/16 3:04 AM) MCH [27.0-31.0 pg] 32.7 g/dL (09/13/16 4:06 AM) 32.9 g/dL (09/12/16 4:41 AM) 32.7 g/dL (09/11/16 3:04 AM) MCHC [32.0-36.0 g/dL] 16.3 % *HI* (09/13/16 4:06 AM) 15.8 % *HI* (09/12/16 4:41 AM) 15.8 % *HI* (09/11/16 3:04 AM) RDW [11.5-14.5 %] 196 K/CMM (09/13/16 4:06 AM) 195 K/CMM (09/12/16 4:41 AM) 212 K/CMM (09/11/16 3:04 AM) Platelet [133-450 K/CMM] 8.0 fL (09/13/16 4:06 AM) 7.7 fL (09/12/16 4:41 AM) 7.8 fL (09/11/16 3:04 AM) MPV [7.4-10.4 fL] 79.8 % *HI* (09/12/16 4:41 AM) 81.3 % *HI* (09/11/16 3:04 AM) 85.2 % *HI* (09/10/16 10:25 PM) Segs [45.0-75.0 %] 11.1 % *LOW* (09/12/16 4:41 AM) 11.1 % *LOW* (09/11/16 3:04 AM) 7.9 % *LOW* (09/10/16 10:25 PM) Lymphocytes [20.0-40.0 %] 8.3 % (09/12/16 4:41 AM) 6.2 % (09/11/16 3:04 AM) 5.4 % (09/10/16 10:25 PM) Monocytes [2.0-12.0 %] 0.2 % (09/12/16 4:41 AM) 0.8 % (09/11/16 3:04 AM) 1.0 % (09/10/16 10:25 PM) Eosinophils [0.0-4.0 %] 0.6 % (09/12/16 4:41 AM) 0.6 % (09/11/16 3:04 AM) 0.5 % (09/10/16 10:25 PM) Basophils [0.0-1.0 %] 7.2 K/CMM (09/12/16 4:41 AM) 7.3 K/CMM (09/11/16 3:04 AM) 9.3 K/CMM *HI* (09/10/16 10:25 PM) Segs-Bands # [1.5-8.1 K/CMM] 1.0 K/CMM (09/12/16 4:41 AM) 1.0 K/CMM (09/11/16 3:04 AM) 0.9 K/CMM *LOW* (09/10/16 10:25 PM) Lymphocytes # [1.0-5.5 K/CMM] 0.7 K/CMM (09/12/16 4:41 AM) 0.6 K/CMM (09/11/16 3:04 AM) 0.6 K/CMM (09/10/16 10:25 PM) Monocytes # [0.0-0.8 K/CMM] 0.1 K/CMM (09/11/16 3:04 AM) 0.1 K/CMM (09/10/16 10:25 PM) Eosinophils # [0.0-0.5 K/CMM] 0.1 K/CMM (09/12/16 4:41 AM) 0.1 K/CMM (09/11/16 3:04 AM) 0.1 K/CMM (09/10/16 10:25 PM) Basophils # [0.0-0.2 K/CMM] 13.1 seconds (09/10/16 10:25 PM) PT [12.0-14.7 seconds] 0.97 (09/10/16 10:25 PM) INR [0.85-1.17] 30.6 seconds (09/10/16 10:25 PM) PTT [22.9-35.8 seconds] Immunizations No data available for this section [...] Smoking Cessation Counseling No Assessment and Plan Extracted from: Title: Discharge Summary * Author: Madelin Juarez MD Date: 09/14/16 Discharge Information Disposition to group home facility Condition stable Medications: See med reconciliation form Discharge Plan Follow-up with your primary care physician and orthopedics once her discharge from the group home facility. In the event of any worsening symptoms patient was a come back to the ED for further evaluation Discharge summary took greater than 35 minutes
--- OUTSIDE RECORDS SUMMARY | 2018-09-15 08:44 | XMS REPORT | Summary of Care ---
Author Author [facility] Address Unknown Phone Unavailable Encounter [facility] Encntr_alibartolo(FIN) [phone] Date(s): 03/04/17 - 04/02/17 [facility] Discharge Disposition: Home or Self Care Attending [...]
--- OUTSIDE RECORDS SUMMARY | 2018-09-15 08:44 | XMS REPORT | Summary of Care ---
Author Author [facility] Address Unknown Phone Unavailable Encounter [facility] Encntr_alibartolo(FIN) [phone] Date(s): 01/30/17 - 02/28/17 [facility] Discharge Disposition: Home or Self Care [...]
--- OUTSIDE RECORDS SUMMARY | 2018-09-15 08:44 | XMS REPORT | Summary of Care ---
Author Author [facility] [place] Organization [facility] [place] Address Unknown Phone Unavailable Encounter [facility] Encntr_alias(FIN) [phone] Date(s): 12/13/15 - 12/13/15 [facility] [place] [address] [place] [phone] Discharge Disposition: Home Attending Physician: Caio Rockwell MD Vital Signs [...]
[2018-09-15] MEDS ORDERED: HYDROXYZINE HCL25 MG PO (08:59)
[2018-09-15] MEDS ORDERED: ASPIRIN EC81 MG PO (08:59)
[2018-09-15] MEDS ORDERED: ZONTIVITY PO (08:59)
[2018-09-15] MEDS ORDERED: iron PO (08:59)
[2018-09-15] MEDS ORDERED: ATORVASTATIN CA10 MG PO (08:59)
--- NOTE | 2018-09-15 09:47 | Diagnostic Imaging Report ---
Exam: Left hip radiographs-2 views, AP radiograph of the pelvis-1 view History: Status post fall with left hip pain. Comparison: None. Findings: Status post ORIF of the left proximal femur with 3 partially threaded screws. Hardware appears intact. There is foreshortening of the left femoral neck in relation to the intertrochanteric femur. There is a remote fracture deformity. No definite acute fracture line is visualized. Mild degenerative changes within the right hip, pubic symphysis, and bilateral sacral iliac joints. Bowel gas obscures visualization of the sacrum. No evidence of acute displaced fracture within the pelvis. Atherosclerotic vascular calcifications. Impression: Status post ORIF of the left proximal femur with posttraumatic deformity as above. Foreshortening of the left femoral neck in relation to the intertrochanteric femur. While no definite acute fracture line is visualized, in the setting of acute pain, dedicated CT of the hip is suggested for further evaluation to evaluate for occult fracture. Signed by: Dr. Von Woody MD on 09/15/2018 9:43 AM
[2018-09-15 10:09] VITALS: BP 158/88
== END 2018-09-15 10:15 | disposition home or self-care (01) ==
LOC: ER 08:39
DX: S70.02XA Contusion of left hip, initial encounter (principal); W01.0XXA Fall on same level from slipping, tripping and stumbling without subsequent striking against object, initial encounter; Y92.008 Other place in unspecified non-institutional (private) residence as the place of occurrence of the external cause; I10 Essential (primary) hypertension; E11.9 Type 2 diabetes mellitus without complications; I25.10 Atherosclerotic heart disease of native coronary artery without angina pectoris; K21.9 Gastro-esophageal reflux disease without esophagitis
CPT/HCPCS: 99282

== ENCOUNTER 2019-03-15 13:52 | Emergency (ER) | payer MEDICARE ==
[~2019-03-15] VITALS: Ht 165.1 cm; Wt 68.9 kg
[~2019-03-15 13:52] MED LIST changes: +ASPIRIN EC81 MG PO; +ATORVASTATIN CA10 MG PO; +HYDROXYZINE HCL25 MG PO; +ZONTIVITY PO; +iron PO
--- NOTE | 2019-03-15 15:57 | Diagnostic Imaging Report ---
EXAMINATION: HIP LEFT 2-3 VW (+/- PELVIS) INDICATION: Trauma COMPARISON: None FINDINGS: AP and frog-leg views of the left hip and AP view of the pelvis were obtained. No acute fracture or dislocation. Alignment appears unchanged compared to prior radiographs of 09/15/2018. There are postoperative findings of prior open reduction internal fixation of the left proximal femur with 3 partially threaded screws. Mild degenerative changes of both hip joints. Mild diffuse osteopenia. Phleboliths within the pelvis. Atherosclerotic arterial calcifications. IMPRESSION: No acute osseous injury. Alignment unchanged compared to 09/15/2018. Signed by: Guido Huang MD on 03/15/2019 3:53 PM
[2019-03-15 17:09] VITALS: BP 140/62
== END 2019-03-15 17:10 | disposition home or self-care (01) ==
LOC: ER 13:52
DX: S70.02XA Contusion of left hip, initial encounter (principal); W18.30XA Fall on same level, unspecified, initial encounter; Y92.008 Other place in unspecified non-institutional (private) residence as the place of occurrence of the external cause; I10 Essential (primary) hypertension; E11.9 Type 2 diabetes mellitus without complications; I51.9 Heart disease, unspecified; K21.9 Gastro-esophageal reflux disease without esophagitis
CPT/HCPCS: 99284

== ENCOUNTER → 2020-03-14 | Outpatient (CLI) | payer MEDICARE ==
--- NOTE | 2020-03-14 12:21 | Diagnostic Imaging Report ---
Radiographs of the left hip HISTORY: Pain COMPARISON: None available. FINDINGS: Bones: No acute displaced fracture. Osseous alignment is within normal limits. Joints: Scattered degenerative change. No osseous erosion. 3 intact metallic screws through the left proximal femur/femoral head Soft tissues: Scattered vascular calcification. IMPRESSION: Scattered degenerative change. No osseous erosion. 3 intact metallic screws through the left proximal femur/femoral head Signed by: Dr. Real Thompson M.D. on 03/14/2020 12:18 PM
--- NOTE | 2020-03-14 12:24 | Diagnostic Imaging Report ---
Radiographs of the right foot - 3 views. Radiographs of the right ankle 3 views. HISTORY: Pain COMPARISON: None available. FINDINGS: Bones: No acute displaced fracture. Osseous alignment is within normal limits. Joints: Scattered degenerative change. No osseous erosion. Small inferior calcaneal bone spur. Medial talar dome osteochondral lesion. No free bone fragment is seen. Soft tissues: Scattered vascular calcification IMPRESSION: Scattered degenerative change. No osseous erosion. Small inferior calcaneal bone spur. Medial talar dome osteochondral lesion. No free bone fragment is seen. Signed by: Dr. Real Thompson M.D. on 03/14/2020 12:21 PM
== END ==
LOC: RAD 11:00
PROVIDERS: ATTEND Internal Medicine
DX: M25.552 Pain in left hip (principal); M25.571 Pain in right ankle and joints of right foot

== ENCOUNTER → 2020-12-28 | Outpatient (CLI) | payer MEDICARE | LOC: RAD 10:43 | PROVIDERS: ATTEND Internal Medicine | DX: M25.562 Pain in left knee (principal); M25.561 Pain in right knee ==

== ENCOUNTER 2023-07-04 19:51 | Inpatient (IN) | payer MEDICARE ==
[~2023-07-04] VITALS: Ht 175.3 cm; Wt 83.9 kg
[2023-07-04] MEDS ORDERED: LIDOCAINE JELLY 2% 10ML URO-JET TOP ONE (20:00)
[2023-07-04] MEDS ORDERED: SODIUM CHLORIDE 0.9% 1000ML 1,000 ML IV ONE (20:15)
[2023-07-04] MEDS ORDERED: ACETAMINOPHEN 325 MG TAB PO ONE (20:15)
[2023-07-04 20:40] LABS: BASOPHILS # (AUTO) 0.1 (0.0-0.1); BASOPHILS % 0.4 % (0.0-1.0); EOSINOPHILS # (AUTO) 0.1 (0.0-0.4); EOSINOPHILS % 0.9 % (0.0-6.0); HEMATOCRIT 44.7 % (38.2-49.6); HEMOGLOBIN 14.3 g/dL (14.0-18.0); LYMPHOCYTES # (AUTO) 2.5 (1.0-3.2); LYMPHOCYTES % 17.4 % (18.0-39.1); MEAN CORPUSCULAR HEMOGLOBIN 28.9 pg (28-32); MEAN CORPUSCULAR VOLUME 90.3 fL (81-99); MONOCYTES # (AUTO) 0.9 (0.2-0.8); MONOCYTES % 6.5 % (4.4-11.3); NEUTROPHILS # (AUTO) 10.6 (2.1-6.9); NEUTROPHILS % 74.4 % (38.7-80.0); PLATELET COUNT 307 x10e3/uL (140-360); RED BLOOD COUNT 4.95 x10e6/uL (4.3-5.7); RED CELL DISTRIBUTION WIDTH 13.8 % (11.7-14.4); WHITE BLOOD COUNT 14.22 x10e3/uL (4.8-10.8)
[2023-07-04 20:53] LABS: ANION GAP 17.1 mmol/L (8-16); CALCIUM 9.7 mg/dL (8.4-10.2); CREATININE, SERUM 1.34 mg/dL (0.72-1.25); POTASSIUM 4.1 mmol/L (3.5-5.1)
[2023-07-04] MEDS ORDERED: IOPAMIDOL 370 MG/ML 100 ML INFUS..BTL INJ ONE (21:14)
[2023-07-04 21:18] LABS: BILIRUBIN,URINE NEGATIVE (NEGATIVE); CLARITY,URINE SL CLOUDY (CLEAR); COLOR,URINE YELLOW (YELLOW); GLUCOSE, URINE >=1000 (NEGATIVE); KETONES,URINE NEGATIVE (NEGATIVE); LEUKOCYTE ESTERASE ,URINE TRACE (NEGATIVE); NITRITE,URINE POSITIVE (NEGATIVE); PH,URINE 6.5 (5 - 7); PROTEIN,URINE DIPSTICK NEGATIVE (NEGATIVE); URINE UROBILINOGEN 1 mg/dL (0.2 - 1)
[2023-07-04 21:28] LABS: BACTERIA,URINE MANY /HPF; RBC,URINE 21-50 /HPF (0-5)
[2023-07-04] MEDS ORDERED: ONDANSETRON HCL INJ 2MG/ML 2ML 2 MG/ML VIAL IV PRN (23:00)
[2023-07-04 23:19] VITALS: PULSE 105; RESP 20; O2SAT 97
[2023-07-04] MEDS ORDERED: IBUPROFEN 600 MG TAB PO STA (23:30)
[2023-07-04] MEDS: SODIUM CHLORIDE 0.9% 1000ML 1,000 ML IV SCH (23:37)
[2023-07-04] MEDS ORDERED: IBUPROFEN 600 MG TAB PO PRN (23:45)
[2023-07-05] VITALS (11 sets, daily range): BP systolic 86–107; BP diastolic 48–60; PULSE 66–100; RESP 15–20; TEMP 97.7–98.6; O2SAT 97–99
[2023-07-05] MEDS ORDERED: JARDIANCE25 MG PO (03:47)
[2023-07-05] MEDS ORDERED: LEVOTHYROXINE50 MCG PO (03:47)
[2023-07-05] MEDS ORDERED: VITAMIN D362.5 MC1 PO (03:47)
[2023-07-05] MEDS ORDERED: FINASTERIDE5 MG PO (03:47)
[2023-07-05] MEDS ORDERED: DOCUSATE SODIU100 MG PO (03:47)
[2023-07-05] MEDS ORDERED: SODIUM CHLORIDE 0.9% 1000ML 1,000 ML IV ONE ×2 (04:45→06:15)
[2023-07-05 06:51] LABS: BASOPHILS # (AUTO) 0.1 (0.0-0.1); BASOPHILS % 0.4 % (0.0-1.0); EOSINOPHILS # (AUTO) 0.1 (0.0-0.4); EOSINOPHILS % 0.7 % (0.0-6.0); HEMOGLOBIN 10.3 g/dL (14.0-18.0); LYMPHOCYTES # (AUTO) 2.8 (1.0-3.2); LYMPHOCYTES % 21.6 % (18.0-39.1); MEAN CORPUSCULAR HEMOGLOBIN 29.3 pg (28-32); MEAN CORPUSCULAR HGB CONC 32.2 g/dL (31-35); MEAN CORPUSCULAR VOLUME 90.9 fL (81-99); MONOCYTES # (AUTO) 0.9 (0.2-0.8); MONOCYTES % 7.1 % (4.4-11.3); NEUTROPHILS % 69.7 % (38.7-80.0); PLATELET COUNT 239 x10e3/uL (140-360); RED BLOOD COUNT 3.52 x10e6/uL (4.3-5.7); RED CELL DISTRIBUTION WIDTH 14.1 % (11.7-14.4); WHITE BLOOD COUNT 12.94 x10e3/uL (4.8-10.8)
[2023-07-05 07:27] LABS: ALBUMIN 2.2 g/dL (3.5-5.0); ALBUMIN/GLOBULIN RATIO 0.7 (0.8-2.0); ANION GAP 10.8 mmol/L (8-16); BILIRUBIN,TOTAL 0.6 mg/dL (0.2-1.2); CALCIUM 7.4 mg/dL (8.4-10.2); CREATININE, SERUM 1.11 mg/dL (0.72-1.25); POTASSIUM 3.8 mmol/L (3.5-5.1); TOTAL PROTEIN 5.3 g/dL (6.5-8.1)
[2023-07-05] MEDS: SODIUM CHLORIDE 0.9% 1000ML 1,000 ML IV SCH ×2 (09:55→20:26)
[2023-07-05] MEDS ORDERED: BISACODYL 10 MG SUPP PR PRN (10:45)
[2023-07-05] MEDS: FLUTICASONE PROPIONATE NASAL SPRAY NS SCH (12:33)
[2023-07-05] MEDS: LEVOTHYROXINE SODIUM 50 MCG TAB PO SCH (12:34)
[2023-07-05] MEDS: LUBIPROSTONE 24 MCG CAP PO SCH (12:34)
[2023-07-05] MEDS: AZELASTINE 0.1% HCL 137 MCG NASAL SPRAY NS SCH ×2 (12:34→16:52)
[2023-07-05] MEDS: GUAIFENESIN 200 MG/10 ML UDC PO PRN (20:26)
[2023-07-05] MEDS: ACETAMINOPHEN 325 MG TAB PO PRN (20:26)
[2023-07-06] VITALS (10 sets, daily range): BP systolic 106–172; BP diastolic 57–88; PULSE 57–100; RESP 17–20; TEMP 97.4–99.3; O2SAT 97–100
[2023-07-06] MEDS: SODIUM CHLORIDE 0.9% 1000ML 1,000 ML IV SCH ×2 (06:24→15:57)
[2023-07-06 07:21] LABS: BASOPHILS % 0.4 % (0.0-1.0); EOSINOPHILS # (AUTO) 0.2 (0.0-0.4); EOSINOPHILS % 1.7 % (0.0-6.0); HEMOGLOBIN 11.4 g/dL (14.0-18.0); LYMPHOCYTES # (AUTO) 2.2 (1.0-3.2); LYMPHOCYTES % 23.6 % (18.0-39.1); MEAN CORPUSCULAR HEMOGLOBIN 29.1 pg (28-32); MEAN CORPUSCULAR VOLUME 96.9 fL (81-99); MONOCYTES # (AUTO) 0.7 (0.2-0.8); MONOCYTES % 7.1 % (4.4-11.3); NEUTROPHILS # (AUTO) 6.3 (2.1-6.9); NEUTROPHILS % 67.1 % (38.7-80.0); PLATELET COUNT 165 x10e3/uL (140-360); RED BLOOD COUNT 3.92 x10e6/uL (4.3-5.7); RED CELL DISTRIBUTION WIDTH 14.5 % (11.7-14.4); WHITE BLOOD COUNT 9.33 x10e3/uL (4.8-10.8)
[2023-07-06 07:59] LABS: ALBUMIN 2.4 g/dL (3.5-5.0); ALBUMIN/GLOBULIN RATIO 0.6 (0.8-2.0); ANION GAP 11.9 mmol/L (8-16); BILIRUBIN,TOTAL 0.8 mg/dL (0.2-1.2); CALCIUM 8.1 mg/dL (8.4-10.2); CREATININE, SERUM 0.92 mg/dL (0.72-1.25); MAGNESIUM 1.9 MG/DL (1.3-2.1); POTASSIUM 3.9 mmol/L (3.5-5.1); TOTAL PROTEIN 6.1 g/dL (6.5-8.1)
[2023-07-06 08:22] LABS: FERRITIN 237.59 ng/mL (21.81-274.66); THYROID STIMULATING HORMONE 0.314 uIU/mL (0.350-4.940)
[2023-07-06] MEDS: ATORVASTATIN 10 MG TAB PO SCH (08:22)
[2023-07-06] MEDS: LUBIPROSTONE 24 MCG CAP PO SCH (08:22)
[2023-07-06] MEDS: DOCUSATE SODIUM 100 MG CAP PO SCH (08:22)
[2023-07-06] MEDS: SENNOSIDES 8.6 MG TAB PO SCH (08:22)
[2023-07-06] MEDS: LEVOTHYROXINE SODIUM 50 MCG TAB PO SCH (08:22)
[2023-07-06] MEDS: FINASTERIDE 5 MG TAB PO SCH (08:23)
[2023-07-06] MEDS: FLUTICASONE PROPIONATE NASAL SPRAY NS SCH ×2 (08:23→08:30)
[2023-07-06] MEDS: PANTOPRAZOLE SOD 40 MG TABEC PO SCH (08:23)
[2023-07-06] MEDS: AZELASTINE 0.1% HCL 137 MCG NASAL SPRAY NS SCH ×3 (08:23→15:59)
[2023-07-06] MEDS: GUAIFENESIN 200 MG/10 ML UDC PO PRN ×2 (09:02→15:59)
[2023-07-06] MEDS: ACETAMINOPHEN 325 MG TAB PO PRN (09:14)
[2023-07-06] MEDS ORDERED: ALBUTEROL/IPRATROPIUM 3 ML NEB NEB PRN (11:45)
[2023-07-06] MEDS ORDERED: FUROSEMIDE INJ 10 MG/ML 4 ML VIAL IV ONE (15:00)
[2023-07-07] VITALS (8 sets, daily range): BP systolic 110–131; BP diastolic 66–79; PULSE 70–89; RESP 17–20; TEMP 97.6–98.4; O2SAT 94–99
[2023-07-07] MEDS ORDERED: LEVOTHYROXINE SODIUM 25 MCG TABLET PO SCH (06:00)
[2023-07-07 06:02] LABS: BASOPHILS # (AUTO) 0.1 (0.0-0.1); BASOPHILS % 0.6 % (0.0-1.0); EOSINOPHILS # (AUTO) 0.4 (0.0-0.4); EOSINOPHILS % 4.2 % (0.0-6.0); HEMATOCRIT 35.1 % (38.2-49.6); HEMOGLOBIN 10.9 g/dL (14.0-18.0); LYMPHOCYTES # (AUTO) 2.9 (1.0-3.2); LYMPHOCYTES % 31.9 % (18.0-39.1); MEAN CORPUSCULAR HEMOGLOBIN 29.1 pg (28-32); MEAN CORPUSCULAR HGB CONC 31.1 g/dL (31-35); MEAN CORPUSCULAR VOLUME 93.9 fL (81-99); MONOCYTES # (AUTO) 0.8 (0.2-0.8); MONOCYTES % 9.2 % (4.4-11.3); NEUTROPHILS # (AUTO) 4.9 (2.1-6.9); NEUTROPHILS % 53.9 % (38.7-80.0); PLATELET COUNT 216 x10e3/uL (140-360); RED BLOOD COUNT 3.74 x10e6/uL (4.3-5.7); RED CELL DISTRIBUTION WIDTH 14.3 % (11.7-14.4); WHITE BLOOD COUNT 9.07 x10e3/uL (4.8-10.8)
[2023-07-07 06:28] LABS: ANION GAP 10.3 mmol/L (8-16); CALCIUM 8.3 mg/dL (8.4-10.2); CREATININE, SERUM 1.03 mg/dL (0.72-1.25); POTASSIUM 3.3 mmol/L (3.5-5.1)
[2023-07-07] MEDS: FINASTERIDE 5 MG TAB PO SCH (08:38)
[2023-07-07] MEDS: PANTOPRAZOLE SOD 40 MG TABEC PO SCH (08:38)
[2023-07-07] MEDS: LUBIPROSTONE 24 MCG CAP PO SCH (08:39)
[2023-07-07] MEDS: ATORVASTATIN 10 MG TAB PO SCH (08:39)
[2023-07-07] MEDS: FLUTICASONE PROPIONATE NASAL SPRAY NS SCH (08:39)
[2023-07-07] MEDS: AZELASTINE 0.1% HCL 137 MCG NASAL SPRAY NS SCH ×2 (08:39→17:13)
[2023-07-07] MEDS: DOCUSATE SODIUM 100 MG CAP PO SCH (08:39)
[2023-07-07] MEDS: SENNOSIDES 8.6 MG TAB PO SCH (08:39)
[2023-07-07] MEDS ORDERED: CEFUROXIME250 MG PO (15:27)
== END 2023-07-07 20:40 | disposition home or self-care (01) | DRG 872 ==
LOC: ER 19:58 → ERHOLD 22:56 → MED/SURG3 23:44
PROVIDERS: ADMIT Internal Medicine; ATTEND Internal Medicine
DX: A41.9 Sepsis, unspecified organism (principal); N30.01 Acute cystitis with hematuria; E87.20 Acidosis, unspecified; N47.1 Phimosis; R65.20 Severe sepsis without septic shock; R33.8 Other retention of urine; B96.20 Unspecified Escherichia coli [E. coli] as the cause of diseases classified elsewhere; E11.22 Type 2 diabetes mellitus with diabetic chronic kidney disease; I13.10 Hypertensive heart and chronic kidney disease without heart failure, with stage 1 through stage 4 chronic kidney disease, or unspecified chronic kidney disease; N18.31 Chronic kidney disease, stage 3a; E78.2 Mixed hyperlipidemia; R53.81 Other malaise; I25.10 Atherosclerotic heart disease of native coronary artery without angina pectoris; K21.9 Gastro-esophageal reflux disease without esophagitis; N40.1 Benign prostatic hyperplasia with lower urinary tract symptoms; Z79.84 Long term (current) use of oral hypoglycemic drugs; Z79.899 Other long term (current) drug therapy; Z79.82 Long term (current) use of aspirin; Z20.822 Contact with and (suspected) exposure to COVID-19
CPT/HCPCS: 36415; 51700; 71045; 74177; 80048; 80053; 81001; 82550; 82607; 82728; 82948; 83036; 83540; 83605; 83735; 84439; 84443; 84466; 84480; 84484; 85025; 87040; 87086; 87186; 87400; 93005; 94799; 99284; J0696; J1940; J7030; Q9967; U0002

== ENCOUNTER 2023-07-11 16:11 | Observation (INO) | payer MEDICARE ==
[~2023-07-11] VITALS: Ht 175.3 cm; Wt 65.3 kg
[~2023-07-11 16:11] MED LIST changes: +CEFUROXIME250 MG PO; +DOCUSATE SODIU100 MG PO; +JARDIANCE25 MG PO; +LEVOTHYROXINE50 MCG PO; +VITAMIN D362.5 MC1 PO
[2023-07-11 17:33] LABS: BASOPHILS # (AUTO) 0.1 (0.0-0.1); BASOPHILS % 0.5 % (0.0-1.0); EOSINOPHILS # (AUTO) 0.5 (0.0-0.4); EOSINOPHILS % 5.6 % (0.0-6.0); HEMATOCRIT 40.4 % (38.2-49.6); HEMOGLOBIN 12.5 g/dL (14.0-18.0); LYMPHOCYTES # (AUTO) 3.7 (1.0-3.2); MEAN CORPUSCULAR HGB CONC 30.9 g/dL (31-35); MEAN CORPUSCULAR VOLUME 93.7 fL (81-99); MONOCYTES # (AUTO) 0.8 (0.2-0.8); MONOCYTES % 7.9 % (4.4-11.3); NEUTROPHILS # (AUTO) 4.4 (2.1-6.9); NEUTROPHILS % 46.4 % (38.7-80.0); PLATELET COUNT 229 x10e3/uL (140-360); RED BLOOD COUNT 4.31 x10e6/uL (4.3-5.7); RED CELL DISTRIBUTION WIDTH 13.8 % (11.7-14.4); WHITE BLOOD COUNT 9.57 x10e3/uL (4.8-10.8)
[2023-07-11 17:48] LABS: ANION GAP 14.7 mmol/L (8-16); CALCIUM 8.8 mg/dL (8.4-10.2); CREATININE, SERUM 0.9 mg/dL (0.72-1.25); POTASSIUM 3.7 mmol/L (3.5-5.1)
[2023-07-11 19:16] LABS: BILIRUBIN,URINE NEGATIVE (NEGATIVE); CLARITY,URINE SL CLOUDY (CLEAR); COLOR,URINE YELLOW (YELLOW); GLUCOSE, URINE 2+ (NEGATIVE); KETONES,URINE NEGATIVE (NEGATIVE); LEUKOCYTE ESTERASE ,URINE SMALL (NEGATIVE); NITRITE,URINE NEGATIVE (NEGATIVE); PH,URINE 6 (5 - 7); PROTEIN,URINE DIPSTICK NEGATIVE (NEGATIVE); URINE UROBILINOGEN 0.2 mg/dL (0.2 - 1)
[2023-07-11 19:27] LABS: BACTERIA,URINE FEW /HPF; RBC,URINE 21-50 /HPF (0-5); WBC,URINE (MAN) 0-5 /HPF (0-5)
[2023-07-11] MEDS ORDERED: ONDANSETRON HCL INJ 2MG/ML 2ML 2 MG/ML VIAL IV PRN (20:15)
[2023-07-11] MEDS ORDERED: SODIUM CHLORIDE FLUSH 10 ML SYR INJ PRN (20:15)
[2023-07-11 23:51] VITALS: BP 108/64; PULSE 62; RESP 17; TEMP 97.7; O2SAT 97
[2023-07-12] VITALS (7 sets, daily range): BP systolic 98–108; BP diastolic 56–66; PULSE 62–78; RESP 16–18; TEMP 97.2–97.8; O2SAT 95–100
[2023-07-12] MEDS: ACETAMINOPHEN 325 MG TAB PO PRN (01:40)
[2023-07-12 06:56] LABS: BASOPHILS % 0.4 % (0.0-1.0); EOSINOPHILS # (AUTO) 0.5 (0.0-0.4); EOSINOPHILS % 5.6 % (0.0-6.0); HEMATOCRIT 39.5 % (38.2-49.6); HEMOGLOBIN 12.4 g/dL (14.0-18.0); LYMPHOCYTES # (AUTO) 3.2 (1.0-3.2); LYMPHOCYTES % 34.6 % (18.0-39.1); MEAN CORPUSCULAR HGB CONC 31.4 g/dL (31-35); MEAN CORPUSCULAR VOLUME 92.5 fL (81-99); MONOCYTES # (AUTO) 0.7 (0.2-0.8); MONOCYTES % 7.6 % (4.4-11.3); NEUTROPHILS # (AUTO) 4.8 (2.1-6.9); NEUTROPHILS % 51.5 % (38.7-80.0); PLATELET COUNT 245 x10e3/uL (140-360); RED BLOOD COUNT 4.27 x10e6/uL (4.3-5.7); WHITE BLOOD COUNT 9.26 x10e3/uL (4.8-10.8)
[2023-07-12 07:34] LABS: ALBUMIN 2.9 g/dL (3.5-5.0); ALBUMIN/GLOBULIN RATIO 0.7 (0.8-2.0); ANION GAP 13.7 mmol/L (8-16); BILIRUBIN,TOTAL 0.7 mg/dL (0.2-1.2); CALCIUM 8.8 mg/dL (8.4-10.2); CREATININE, SERUM 0.87 mg/dL (0.72-1.25); POTASSIUM 3.7 mmol/L (3.5-5.1); TOTAL PROTEIN 6.8 g/dL (6.5-8.1)
[2023-07-12] MEDS ORDERED: DOCUSATE SODIUM 100 MG CAP PO PRN (13:15)
[2023-07-12] MEDS ORDERED: HYDROXYZINE HCL 25 MG TAB PO PRN (13:15)
[2023-07-12] MEDS: CEFUROXIME AXETIL 250 MG TAB PO SCH (14:07)
[2023-07-12] MEDS: TAMSULOSIN HCL 0.4 MG CAP PO SCH (16:08)
[2023-07-12] MEDS: PANTOPRAZOLE SOD 40 MG TABEC PO SCH (16:08)
[2023-07-13] MEDS ORDERED: LEVOTHYROXINE SODIUM 25 MCG TABLET PO SCH (06:00)
[2023-07-13] MEDS ORDERED: TAMSULOSIN HCL 0.4 MG CAP PO SCH (09:00)
[2023-07-13] MEDS ORDERED: ATORVASTATIN 10 MG TAB PO SCH (09:00)
[2023-07-13] MEDS ORDERED: PANTOPRAZOLE SOD 40 MG TABEC PO SCH (09:00)
[2023-07-13] MEDS ORDERED: FINASTERIDE 5 MG TAB PO SCH (09:00)
== END 2023-07-12 17:26 | disposition home or self-care (01) ==
LOC: ER 16:36 → ERHOLD 20:09 → MED/SURG 20:57
PROVIDERS: ADMIT Internal Medicine; ATTEND Internal Medicine
DX: R31.0 Gross hematuria (principal); N47.1 Phimosis; N40.0 Benign prostatic hyperplasia without lower urinary tract symptoms; R81 Glycosuria; K40.20 Bilateral inguinal hernia, without obstruction or gangrene, not specified as recurrent; K57.90 Diverticulosis of intestine, part unspecified, without perforation or abscess without bleeding; Z87.440 Personal history of urinary (tract) infections; I10 Essential (primary) hypertension; I25.10 Atherosclerotic heart disease of native coronary artery without angina pectoris; E11.9 Type 2 diabetes mellitus without complications; K21.9 Gastro-esophageal reflux disease without esophagitis; Z11.52 Encounter for screening for COVID-19; Z79.82 Long term (current) use of aspirin; Z79.899 Other long term (current) drug therapy
CPT/HCPCS: 36415 ×2; 80048; 80053; 81001; 82948 ×2; 85025 ×2; 87086; 87186; 99284; G0378 ×2; U0002; J3410